=== PATIENT | female | born 1965 | race Caucasian/White ===

== ENCOUNTER 2017-04-17 22:10 | Emergency (ER) | payer OTHER, SELFPAY ==
[2017-04-17 22:19] VITALS: BP 127/71; PULSE 112; RESP 18; TEMP 37.7; O2SAT 94; BMI 27.4
--- NOTE | 2017-04-17 22:34 | HMH.EDGENADL ---
ED Disposition Clinical Impression: COPD exacerbation, Hypokalemia Acute bronchitis Qualifiers: Bronchitis organism: unspecified organism Qualified Code(s): J20.9 - Acute bronchitis, unspecified Diarrhea Qualifiers: Diarrhea type: unspecified type Qualified Code(s): R19.7 - Diarrhea, unspecified Disposition: Home, Self-Care Condition on Discharge: Good Additional Instructions: Continue your inhaler. Rest and plenty of fluids. Tylenol for fever. Additional instructions for SHORTNESS OF BREATH: See your physician as soon as possible for further evaluation. Return immediately if worsening shortness of breath or if vomiting, chest pain, fever, coughing of blood, or passing out. Prescriptions: Azithromycin [Zithromax 250mg tab] 250 mg PO DAILY #4 tab Potassium Chloride [K-Tab ER 20 mEq] 20 meq PO DAILY #7 tab predniSONE [Prednisone 10mg Tab Dose-Pack] 10 mg PO DAILY #42 tab Referrals: Juan M Sawyer MD [Primary Care Provider] - 3 days - Critical Care Critical Care Time: No Attestation: On 04/17/17, the high probability of a clinically significant, sudden or life threatening deterioration of the following system(s) required my full and direct attention, intervention and personal management. The time I documented below is in addition to time spent performing reported procedures but includes the following listed in this critical care notation. Medical Decision Making Vital Signs: 04/17/17 22:19 04/17/17 22:44 Temperature 99.9 F H Temperature Source Oral Pulse Rate 89 Pulse Rate [Right Radial] 112 H Respiratory Rate 18 Blood Pressure [Right Arm] 127/71 Blood Pressure Mean [Right Arm] 89 Blood Pressure Source [Right Arm] Automatic Cuff Blood Pressure Position [Right Arm] Supine 02 Sat by Pulse Oximetry 94 L Oxygen Delivery Method Room Air - Lab Data Lab Results 04/17/17 22:30: WBC 8.5, RBC 4.25, Hgb 13.3, Hct 39.0, MCV 91.9, MCH 31.3 H, MCHC 34.1, RDW 13.6, Plt Count 206, MPV 8.5, Neut % (Auto) 72.5, Lymph % (Auto) 20.6, [place] % (Auto) 6.2, Eos % (Auto) 0.2, Baso % (Auto) 0.4, Neut # (Auto) 6.2, Lymph # (Auto) 1.8, [place] # (Auto) 0.5, Eos # (Auto) 0.0, Baso # (Auto) 0.0 04/17/17 22:30: Sodium 135 L, Potassium 2.9 L*, Chloride 101, Carbon Dioxide 22, Anion Gap 14.9, BUN 13, Creatinine 1.12 H, Estimated Creat Clear 74, Estimated GFR 52 L, Est GFR ( Amer) 63, Glucose 135 H, Calcium 8.2 L, Total Bilirubin 0.5, AST 46 H, ALT 47, Alkaline Phosphatase 83, Total Protein 7.5, Albumin 3.5, Globulin 4.0 H, Albumin/Globulin Ratio 0.9 L, Amylase 48 04/17/17 22:30: Lactic Acid 1.3 04/17/17 22:30: Influenza Type A Ag Negative, Influenza Type B Ag Negative, Group A Strep Rapid Negative 04/17/17 22:30: Total Creatine Kinase 258 H, CK-MB (CK-2) < 0.5, CK-MB (CK-2) Rel Index 0.2, Troponin I < 0.02 Result diagrams: 04/17/17 22:30 04/17/17 22:30 Orders (Tests/Meds): ED MEDICATIONS Discontinued Medications Generic Name Dose Route Start Last Admin Trade Name Mandoq PRN Reason Stop Dose Admin Methylprednisolone Sodium Succinate 125 mg 04/17/17 23:02 04/17/17 23:11 Solu-Medrol 125mg/2ml Vial IV 04/17/17 23:03 125 mg ONCE ONE Administration Potassium Chloride 60 meq 04/17/17 23:00 04/17/17 23:11 Klor-Con 20meq Tablet PO 04/17/17 23:01 60 meq ONCE ONE Administration Sodium Chloride 1,000 ml 04/17/17 23:00 04/17/17 23:11 Sod Chlor 0.9% 1000ml Bag IV 04/17/17 23:01 1,000 ml BOLUS ONE Administration ORDERS Category Date Time Status Chest XR 2 view (NOT portable) [XR chest 2V] Stat Exams 04/17/17 22:36 Taken Diarrhea Panel, PCR Stat Lab 04/17/17 23:01 Ordered Urinalysis and Microscopic Stat Lab 04/17/17 22:29 Ordered Blood Culture Stat Micro 04/17/17 22:30 Received Strep Screen Confirmation Stat Micro 04/17/17 22:30 Received - Radiology Data #1 Image(s): Chest Image Reviewed: Yes I reviewed the patient's radiology results Prelimi
--- NOTE | 2017-04-17 22:36 | XR_ITS ---
XR chest 2V Ordering Physician: Thony Betancourt MD Patient Age: 51 years: Female HISTORY: ITS.REASON: cough, congestion . Smoker TECHNIQUE: PA and lateral chest COMPARISON :July & November 2006 CXR studies FINDINGS . Minor chronic changes reflecting history of smoking. A slight coarsening markings towards the right lower lobe is similar to previous studies dating back to 2006. A subtle minimal linear area projected over anterior third rib most likely reflects linear scarring and/or atelectasis but is slightly more evident today CXR. Perhaps Consider follow-up chest film in 2 - 3 months particularly if symptoms persist. & If prominent history of smoking consider.LDCT follow-up . Old lateral left fifth rib fracture noted. Left lung otherwise stable unremarkable. Scant apical pleural scarring. . Heart is normal in size mediastinal structures unremarkable. Calcified hilar nodes reflect over granulomatous disease. Small calcified granuloma just lateral to the right honey again noted and stable. IMPRESSION: ------- 1. Nothing definitely acute. Minor chronic changes . 2. Very Minor accentuation of minimal linear scarring & or atelectasis at the RUL project over the right third rib end. This is not felt to be of significance, but if prominent history of smoking may want to consider follow-up CXR or LD CT chest 3. Healing left rib fracture has become apparent since 2014
[2017-04-17 22:44] VITALS: PULSE 88; PULSE 89
[2017-04-17 22:53] LABS: Basophils % 0.4 % (0.1-2.0); Eosinophils % 0.2 % (0.1-12.0); Hemoglobin 13.3 g/dL (12.2-16.2); Lymphocytes # 1.8 K/mm3 (0.7-4.5); Lymphocytes % 20.6 K/mm3 (10-50); Mean Corpuscular HGB Conc 34.1 g/dL (31.8-35.4); Mean Corpuscular Hemoglobin 31.3 pg (27.0-31.2); Mean Corpuscular Volume 91.9 fl (81-99); Mean Platelet Volume 8.5 fl (7.4-10.4); Monocytes # 0.5 K/mm3 (0.1-1.0); Monocytes % 6.2 % (1.7-9.3); Neutrophils # 6.2 K/mm3 (1.8-7.8); Neutrophils % 72.5 % (37.0-80.0); Platelet Count 206 K/mm3 (142-424); Red Blood Count 4.25 M/mm3 (4.20-5.40); Red Cell Distribution Width 13.6 % (11.5-17.5); White Blood Count 8.5 K/mm3 (4.8-10.8)
[2017-04-17 22:59] LABS: Alanine Aminotransferase 47 U/L (12-78); Albumin Level 3.5 gm/dL (3.4-5.0); Albumin/Globulin Ratio 0.9 (1.1-1.8); Alkaline Phosphatase 83 U/L (46-116); Amylase 48 U/L (25-125); Anion Gap 14.9 mEq/L (5-15); Aspartate Amino Transferase 46 U/L (15-37); Bilirubin,Total 0.5 mg/dL (0.2-1.0); Blood Urea Nitrogen 13 mg/dL (7-18); Calcium 8.2 mg/dL (8.5-10.1); Carbon Dioxide 22 mmol/L (21.0-32.0); Chloride 101 mmol/L (98-107); Creatinine Clearance Estimated 74 mL/min (0-300); Creatinine,Serum 1.12 mg/dL (0.55-1.02); Estimated Glomerular Filt Rate 52 ml/min (>60); GFR (African American) 63 ML/MIN (>60); Glucose 135 mg/dL (74-106); Sodium 135 mmol/L (136-145); Total Protein,Serum 7.5 gm/dL (6.4-8.2)
[2017-04-17 23:00] LABS: Potassium 2.9 mmoL/L (3.5-5.1)
[2017-04-17 23:05] LABS: Lactic Acid 1.3 mmol/L (0.4-2.0)
[2017-04-17 23:06] LABS: Strep Scrn Group A (Rapid) Negative (Negative)
[2017-04-17 23:23] LABS: CKMB Relative Index 0.2 U/L (0-4.0); Creatine Kinase 258 U/L (26-192); Creatine Kinase MB < 0.5 mg/ml (0.0-3.6); Troponin I < 0.02 ng/ml (0.00-0.06)
[2017-04-18 00:14] VITALS: BP 138/82; PULSE 92; RESP 16; TEMP 37.1; O2SAT 96
== END 2017-04-18 00:17 | disposition home or self-care (01) ==
PROVIDERS: Emergency Provider Emergency Medicine; PCP Emergency Medicine
DX: J44.0 Chronic obstructive pulmonary disease with (acute) lower respiratory infection (principal); J44.1 Chronic obstructive pulmonary disease with (acute) exacerbation; E87.6 Hypokalemia; Z79.899 Other long term (current) drug therapy; Z91.040 Latex allergy status; Z88.6 Allergy status to analgesic agent; F17.210 Nicotine dependence, cigarettes, uncomplicated
CPT/HCPCS: 71046; 80053; 82150; 82550; 82553; 83605; 84484; 85025; 87040; 87275; 87276; 87430; 93005; 96365; 96374; 96375; 99284

== ENCOUNTER → 2017-09-09 10:23 | Outpatient (REF) | payer OTHER, SELFPAY ==
[2017-09-09 13:34] LABS: Basophils # 0.1 K/mm3 (0-0.2); Basophils % 0.8 % (0.1-2.0); Eosinophils # 0.2 K/mm3 (0.0-0.4); Eosinophils % 2.9 % (0.1-12.0); Hematocrit 48.1 % (37.0-47.0); Hemoglobin 14.6 g/dL (12.2-16.2); Lymphocytes # 2.2 K/mm3 (0.7-4.5); Lymphocytes % 27.7 K/mm3 (10-50); Mean Corpuscular HGB Conc 30.3 g/dL (31.8-35.4); Mean Corpuscular Hemoglobin 29.9 pg (27.0-31.2); Mean Corpuscular Volume 98.6 fl (81-99); Mean Platelet Volume 8.8 fl (7.4-10.4); Monocytes # 0.5 K/mm3 (0.1-1.0); Monocytes % 6.2 % (1.7-9.3); Neutrophils % 62.4 % (37.0-80.0); Platelet Count 300 K/mm3 (142-424); Red Blood Count 4.88 M/mm3 (4.20-5.40); Red Cell Distribution Width 13.5 % (11.5-17.5); White Blood Count 7.9 K/mm3 (4.8-10.8)
[2017-09-09 14:07] LABS: Alanine Aminotransferase 20 U/L (12-78); Albumin Level 3.8 gm/dL (3.4-5.0); Albumin/Globulin Ratio 1.1 (1.1-1.8); Alkaline Phosphatase 102 U/L (46-116); Anion Gap 13.5 mEq/L (5-15); Aspartate Amino Transferase 18 U/L (15-37); Bilirubin,Total 0.4 mg/dL (0.2-1.0); Blood Urea Nitrogen 14 mg/dL (7-18); Calcium 8.7 mg/dL (8.5-10.1); Carbon Dioxide 23 mmol/L (21.0-32.0); Chloride 112 mmol/L (98-107); Cholesterol 181 mg/dL (140-200); Estimated Glomerular Filt Rate 59 ml/min (>60); GFR (African American) 71 ML/MIN (>60); Globulin 3.5 gm/dl (1.3-3.2); Glucose 100 mg/dL (74-106); HDL Cholesterol 30 mg/dL (29-89); LDL Cholesterol 116 mg/dL (0-130); Potassium 4.5 mmoL/L (3.5-5.1); Sodium 144 mmol/L (136-145); T4 (Thyroxine) 5.8 ug/dl (4.7-13.3); Thyroid Stimulating Hormone 7.57 uIU/ml (0.358-3.740); Total Protein,Serum 7.3 gm/dL (6.4-8.2); Triglycerides 173 mg/dL (30-200); VLDL Cholesterol 35 mg/dL (0-40)
[2017-09-10 17:59] LABS: Vitamin D 25 Hydroxy 32.3 ng/mL (30.0-100.0)
== END ==
LOC: LAB 10:23
PROVIDERS: Visit Provider Physician Assistant
DX: R06.02 Shortness of breath (principal); R60.0 Localized edema
CPT/HCPCS: 80053; 80061; 82652; 84436; 84443; 85025

== ENCOUNTER → 2017-09-16 07:28 | Outpatient (CLI) | payer OTHER, SELFPAY ==
--- NOTE | 2017-09-16 07:31 | CA_ITS ---
PROCEDURE: 2-D M-mode and color Doppler study INDICATIONS FOR THE TEST: Chest pain X COPDX Heart Murmur Tobacco SmokingX Palpitations Fatigue Syncope EdemaX Hypertension Diabetes Mellitus Rheumatic Fever SOBXDOEXObesity Hyperlipidemia Family History HD Additional History TDS COPD PATIENT INFORMATION HEIGHT: 66 WEIGHT:197 GENDER: Female B/P:146/80 2-D/M-MODE INTERPRETATION: 2-D MEASUREMENTS OBSERVED VALUES IN CMS Right Ventricular Dimension (RVDd) 2.0 Interventricular Septum (Thickness)(IVsd) .8 Left Ventricular Internal Dimensions(LVIDd) 5.2 Left Ventricular Posterior Wall (Thickness)(LVPWd) .8 Aortic Root 3.0 Aortic Cusp Separation 1.9 Left Atrial Dimensions (LAD) 3.1 2D 1. Left atrium is normal size, left ventricle is normal size, there is no concentric left ventricular hypertrophy, visually estimated ejection fraction of 50% with no obvious regional wall motion abnormality. 2. The right atrium and right ventricle are relatively normal size and function. 3. The aortic, mitral and tricuspid valve are grossly normal. 4. The pulmonic valve is poorly visualized. 5. No significant pericardial effusion noted. DOPPLER INTERROGATION: Doppler interrogation of the aortic, mitral and tricuspid valvular presence of mild mitral and tricuspid regurgitation, tricuspid and jet velocity is insufficient for calculation of the right ventricular systolic pressure, diastolic parameters are within normal range. CONCLUSION: 1. Normal left ventricular size, visually estimated ejection fraction 50% with no obvious regional wall motion abnormality, diastolic parameters are within normal range. 2. Mild mitral and tricuspid regurgitation 3. No significant pericardial effusion noted.
== END ==
PROVIDERS: PCP Physician Assistant; Visit Provider Emergency Medicine
DX: R06.00 Dyspnea, unspecified (principal); R60.0 Localized edema
CPT/HCPCS: 93306

== ENCOUNTER → 2017-10-20 13:44 | Outpatient (REF) | payer OTHER, SELFPAY ==
[2017-10-20 18:15] LABS: Basophils # 0.1 K/mm3 (0-0.2); Basophils % 0.8 % (0.1-2.0); Eosinophils # 0.1 K/mm3 (0.0-0.4); Hematocrit 42.5 % (37.0-47.0); Hemoglobin 13.5 g/dL (12.2-16.2); Lymphocytes # 2.6 K/mm3 (0.7-4.5); Mean Corpuscular HGB Conc 31.8 g/dL (31.8-35.4); Mean Corpuscular Hemoglobin 31.1 pg (27.0-31.2); Mean Corpuscular Volume 97.9 fl (81-99); Mean Platelet Volume 8.5 fl (7.4-10.4); Monocytes # 0.6 K/mm3 (0.1-1.0); Monocytes % 7.7 % (1.7-9.3); Neutrophils # 3.9 K/mm3 (1.8-7.8); Neutrophils % 53.5 % (37.0-80.0); Platelet Count 344 K/mm3 (142-424); Red Blood Count 4.34 M/mm3 (4.20-5.40); Red Cell Distribution Width 13.8 % (11.5-17.5); White Blood Count 7.2 K/mm3 (4.8-10.8)
[2017-10-20 19:18] LABS: Alanine Aminotransferase 22 U/L (12-78); Albumin Level 3.5 gm/dL (3.4-5.0); Alkaline Phosphatase 101 U/L (46-116); Anion Gap 11.3 mEq/L (5-15); Aspartate Amino Transferase 13 U/L (15-37); Bilirubin,Total 0.4 mg/dL (0.2-1.0); Blood Urea Nitrogen 9 mg/dL (7-18); Calcium 8.7 mg/dL (8.5-10.1); Carbon Dioxide 26 mmol/L (21.0-32.0); Chloride 107 mmol/L (98-107); Chol/HDL Ratio 5.7 (1-3.5); Cholesterol 194 mg/dL (140-200); Creatinine,Serum 0.97 mg/dL (0.55-1.02); Estimated Glomerular Filt Rate 61 ml/min (>60); GFR (African American) 74 ML/MIN (>60); Globulin 3.6 gm/dl (1.3-3.2); Glucose 91 mg/dL (74-106); HDL Cholesterol 34 mg/dL (29-89); LDL Cholesterol 129 mg/dL (0-130); Potassium 4.3 mmoL/L (3.5-5.1); Sodium 140 mmol/L (136-145); T4 (Thyroxine) 7.4 ug/dl (4.7-13.3); Thyroid Stimulating Hormone 15.39 uIU/ml (0.358-3.740); Total Protein,Serum 7.1 gm/dL (6.4-8.2); Triglycerides 157 mg/dL (30-200); VLDL Cholesterol 31 mg/dL (0-40)
[2017-10-22 08:27] LABS: Vitamin D 25 Hydroxy 38.8 ng/mL (30.0-100.0)
== END ==
LOC: LAB 13:44
PROVIDERS: Visit Provider Physician Assistant
DX: E66.3 Overweight (principal); E87.6 Hypokalemia; J44.1 Chronic obstructive pulmonary disease with (acute) exacerbation
CPT/HCPCS: 80053; 80061; 82652; 84436; 84443; 85025

== ENCOUNTER → 2017-11-02 08:57 | Outpatient (CLI) | payer OTHER, SELFPAY ==
--- NOTE | 2017-11-02 09:02 | US_ITS ---
US abdomen complete HISTORY: ITS.REASON: edema, hepatomegaly? ORDERING PHYSICIAN: Juan M Sawyer MD PATIENT AGE: 52 COMPARISON: None FINDINGS: PANCREAS:Poorly demonstrated due to overlying bowel gas. Grossly unremarkable LIVER:No focal liver lesions demonstrated. Homogeneous echogenicity. No intrahepatic biliary ductal dilatation evident RIGHT KIDNEY:Unremarkable. Normal size and echogenicity. No hydronephrosis LEFT KIDNEY:Unremarkable. No hydronephrosis. Mild cortical thinning. GALLBLADDER:No gallstones, gallbladder wall thickening, pericholecystic fluid, or biliary dilatation. AORTA:No evidence of aneurysmal dilatation. SPLEEN:Unremarkable. Normal size and echogenicity ASCITES:None demonstrated. IMPRESSION: No acute finding.
== END ==
PROVIDERS: PCP Emergency Medicine; Visit Provider Emergency Medicine
DX: R06.00 Dyspnea, unspecified (principal); R60.9 Edema, unspecified
CPT/HCPCS: 76700

== ENCOUNTER → 2017-11-09 10:06 | Outpatient (REF) | payer OTHER, SELFPAY ==
[2017-11-09 14:42] LABS: Basophils # 0.1 K/mm3 (0-0.2); Basophils % 0.9 % (0.1-2.0); Eosinophils # 0.1 K/mm3 (0.0-0.4); Eosinophils % 1.6 % (0.1-12.0); Hematocrit 43.5 % (37.0-47.0); Hemoglobin 14.1 g/dL (12.2-16.2); Lymphocytes # 2.3 K/mm3 (0.7-4.5); Lymphocytes % 29.6 K/mm3 (10-50); Mean Corpuscular HGB Conc 32.3 g/dL (31.8-35.4); Mean Corpuscular Hemoglobin 31.5 pg (27.0-31.2); Mean Corpuscular Volume 97.4 fl (81-99); Mean Platelet Volume 8.8 fl (7.4-10.4); Monocytes # 0.6 K/mm3 (0.1-1.0); Monocytes % 7.5 % (1.7-9.3); Neutrophils # 4.7 K/mm3 (1.8-7.8); Neutrophils % 60.3 % (37.0-80.0); Platelet Count 300 K/mm3 (142-424); Red Blood Count 4.47 M/mm3 (4.20-5.40); Red Cell Distribution Width 13.2 % (11.5-17.5); White Blood Count 7.8 K/mm3 (4.8-10.8)
[2017-11-09 15:14] LABS: Alanine Aminotransferase 21 U/L (12-78); Albumin Level 3.4 gm/dL (3.4-5.0); Albumin/Globulin Ratio 0.9 (1.1-1.8); Alkaline Phosphatase 108 U/L (46-116); Anion Gap 11.8 mEq/L (5-15); Aspartate Amino Transferase 15 U/L (15-37); Bilirubin,Total 0.2 mg/dL (0.2-1.0); Blood Urea Nitrogen 13 mg/dL (7-18); Calcium 8.3 mg/dL (8.5-10.1); Carbon Dioxide 27 mmol/L (21.0-32.0); Chloride 108 mmol/L (98-107); Creatinine,Serum 1.11 mg/dL (0.55-1.02); Estimated Glomerular Filt Rate 52 ml/min (>60); GFR (African American) 63 ML/MIN (>60); Globulin 3.6 gm/dl (1.3-3.2); Glucose 87 mg/dL (74-106); Potassium 3.8 mmoL/L (3.5-5.1); Sodium 143 mmol/L (136-145); T4 (Thyroxine) 9.2 ug/dl (4.7-13.3); Thyroid Stimulating Hormone 0.17 uIU/ml (0.358-3.740)
[2017-11-10 08:26] LABS: Hep A Ab, IgM Negative (Negative); Hepatitis B Core Antibody IgM Negative (Negative); Hepatitis B Surface Antigen Negative (Negative)
[2017-11-10 12:45] LABS: HIV Screen 4th Generation wRfx Non Reactive (Non Reactive); HSV 2 IgG, Type Spec <0.91 index (0.00-0.90); Hepatitis C Antibody 0.2 s/co ratio (0.0-0.9); Rapid Plasma Reagin Ab Titer Non Reactive (NonRea<1:1)
== END ==
LOC: LAB 10:06
PROVIDERS: Visit Provider Physician Assistant
DX: Z20.5 Contact with and (suspected) exposure to viral hepatitis (principal); E03.9 Hypothyroidism, unspecified
CPT/HCPCS: 80053; 80074; 84436; 84443; 85025; 86592; 86695; 86703; 86790; G0432

== ENCOUNTER → 2017-12-14 09:52 | Outpatient (REF) | payer OTHER, SELFPAY ==
[2017-12-14 13:52] LABS: Amphetamine/Metha Screen,Urine Negative ng/mL (<1000); Barbiturates Screen,Urine Negative ng/mL (<200); Benzodiazepines Screen,Urine Negative ng/mL (<200); Cannabinoid Screen,Urine Positive ng/mL (<50); Cocaine Screen,Urine Negative ng/mL (<300); Methadone Screen,Urine Negative ng/mL (<300); Opiate Screen,Urine Negative ng/mL (<300); Phencyclidine Screen,Urine Negative ng/mL (<25)
[2017-12-21 09:20] LABS: Alprazolam Negative (Cutoff=100); Benzodiazepines Positive ng/mL (Cutoff=100); Clonazepam Positive (.); Flurazepam Negative (Cutoff=100); Lorazepam Negative (Cutoff=100); Midazolam Negative (Cutoff=100); Temazepam Negative (Cutoff=100); Triazolam Negative (Cutoff=100)
[2017-12-21 15:52] LABS: Clonazepam Confirm 280 ng/mL (Cutoff=100)
== END ==
LOC: LAB 09:52
PROVIDERS: Visit Provider Physician Assistant
DX: Z79.899 Other long term (current) drug therapy (principal)
CPT/HCPCS: 80305; 80346

== ENCOUNTER → 2018-02-01 13:46 | Outpatient (CLI) | payer OTHER, SELFPAY ==
--- NOTE | 2018-02-01 13:49 | XR_ITS ---
XR knee RT 3V HISTORY: ITS.REASON: Right knee pain ORDERING PHYSICIAN: KATYA Parsons PATIENT AGE: 52 years COMPARISON: None FINDINGS: No fracture or dislocation. No lytic or blastic change. Normal mineralization. No significant arthritic changes evident. No other significant findings IMPRESSION: Negative Knee
[2018-02-01 14:40] VITALS: PULSE 79; PULSE 82
== END ==
PROVIDERS: PCP Physician Assistant; Visit Provider Physician Assistant
DX: R06.00 Dyspnea, unspecified (principal); M25.561 Pain in right knee
CPT/HCPCS: 73562; 94060; 94640

== ENCOUNTER → 2018-02-02 09:24 | Outpatient (CLI) | payer OTHER, SELFPAY ==
--- NOTE | 2018-02-02 09:26 | CT_ITS ---
CT lung screening EXAM: CT LUNG LOW DOSE WO CONTRAST HISTORY: 60 pack-year smoking history asymptomatic for lung cancer ITS.REASON: Smoker ORDERING PHYSICIAN: KATYA Parsons PATIENT AGE: 52 years COMPARISON: None TECHNIQUE: The exam was performed on a GE Light Speed [address] scanner using 2.90 mGy CTDI. A low dose helical CT CHEST was performed on a multi-detector scanner. All CT scans at the facility use one or more dose reduction, viz: automated exposure control, ma/kV adjustment per patient size (including targeted exams where dose is matched to indication, i.e. head), or iterative reconstruction technique. The LDCT was performed in a facility that meets the criteria for the screening program. Data regarding this exam was submitted to ACR which is an approved registry. The order for this exam indicates that it came as a result of a lung cancer screening counseling shard decision-making visit that included all the elements required of such a visit including smoking cessation. The radiologist interpreting this exam meets the CMS criteria for the LDCT lung cancer screening program. The exam is reported using the Lung-RADS classification scale and reported to the ACR registry. NOTE: This study was performed for the specific purposes of lung cancer screening and is not an alternative to diagnostic chest CT. RADIATION DOSE: CTDI vol(CT dose Index-volume) = 2.90mG DLP (Dose Length Product) = 106.81 mGcm FINDINGS: There is hyperinflation with attenuation of the peripheral pulmonary vessels consistent with COPD with mild coarsening of the bronchovascular markings. Calcified granuloma is present in the central aspect of the right upper lobe. Calcified nodes are present in the hilum and mediastinum IMPRESSION: 1. Lung RADS Category: 2, benign 2. Other findings: COPD RECOMMENDATIONS: 12 month LDCT follow-up
--- NOTE | 2018-02-02 09:26 | MM_ITS ---
MM Dig screening mamm BI w/CAD CAD Screening COMPARISON: Digital mammograms with CAD 01/23/2014 and analog mammograms September 2007 INDICATION: There is no personal or family history of breast cancer TECHNIQUE: Standard CC and MLO images were obtained. R2 CAD reviewed. FINDINGS: Scattered fibroglandular densities are seen in both breast and the findings are bilateral and symmetrical. There are couple benign-appearing calcifications right breast. There is no suspicious lesion and there are no suspicious microcalcifications. There are small nodes in both axilla as noted previously. IMPRESSION: Fibrofatty parenchyma no suspicious lesion seen BI-RADS Category: 2 Benign Finding(s) RECOMMENDED FOLLOW-UP: 1YR - 1 YEAR FOLLOW-UP (A letter has been sent to the patient regarding results of the study.)
== END ==
PROVIDERS: PCP Physician Assistant; Visit Provider Physician Assistant
DX: Z12.31 Encounter for screening mammogram for malignant neoplasm of breast (principal); Z12.2 Encounter for screening for malignant neoplasm of respiratory organs; Z87.891 Personal history of nicotine dependence
CPT/HCPCS: 77067

== ENCOUNTER → 2018-05-06 13:27 | Outpatient (CLI) | payer OTHER, SELFPAY ==
[2018-05-06 13:32] LABS: Microscopic, Urine URINE MICROSCOPIC (MICROSCOPIC)
[2018-05-06 14:39] LABS: Appearance,Urine SL CLOUDY (Clear); Bilirubin,Urine Negative (Negative); Blood, Urine 2+ (Negative); Color,Urine YELLOW (Yellow); Glucose,Urine (UA) Negative (Negative); Ketones,Urine Negative (Negative); Leukocyte Esterase,Urine Negative (Negative); Nitrate,Urine Negative (Negative); Protein,Urine Negative (Negative); Specific Gravity, Urine 1.025 (1.005-1.030); Urobilinogen,Urine 0.2 EU/dl (0.2)
[2018-05-06 14:50] LABS: Amphetamine/Metha Screen,Urine Positive ng/mL (<1000); Barbiturates Screen,Urine Negative ng/mL (<200); Benzodiazepines Screen,Urine Negative ng/mL (<200); Cannabinoid Screen,Urine Positive ng/mL (<50); Cocaine Screen,Urine Negative ng/mL (<300); Methadone Screen,Urine Negative ng/mL (<300); Opiate Screen,Urine Negative ng/mL (<300); Phencyclidine Screen,Urine Negative ng/mL (<25)
[2018-05-06 16:08] LABS: Bacteria,Urine 1+ /lpf
== END ==
PROVIDERS: Visit Provider Nurse Practitioner Family
DX: Z79.899 Other long term (current) drug therapy (principal); R35.0 Frequency of micturition
CPT/HCPCS: 80305; 81001; 87086

== ENCOUNTER → 2018-06-22 14:26 | Outpatient (CLI) | payer OTHER, SELFPAY ==
[2018-06-22 15:26] LABS: Amphetamine/Metha Screen,Urine Negative ng/mL (<1000); Barbiturates Screen,Urine Negative ng/mL (<200); Benzodiazepines Screen,Urine Negative ng/mL (<200); Cannabinoid Screen,Urine Positive ng/mL (<50); Cocaine Screen,Urine Negative ng/mL (<300); Methadone Screen,Urine Negative ng/mL (<300); Opiate Screen,Urine Negative ng/mL (<300); Phencyclidine Screen,Urine Negative ng/mL (<25)
== END ==
PROVIDERS: Visit Provider Physician Assistant
DX: Z79.899 Other long term (current) drug therapy (principal)
CPT/HCPCS: 80305

== ENCOUNTER → 2018-08-02 14:55 | Outpatient (CLI) | payer OTHER, SELFPAY ==
[2018-08-10 08:20] LABS: Alprazolam Negative (Cutoff=100); Benzodiazepines Negative ng/mL (Cutoff=100); Clonazepam Negative (Cutoff=100); Flurazepam Negative (Cutoff=100); Lorazepam Negative (Cutoff=100); Midazolam Negative (Cutoff=100); Temazepam Negative (Cutoff=100); Triazolam Negative (Cutoff=100)
== END ==
PROVIDERS: Visit Provider Physician Assistant
DX: Z79.899 Other long term (current) drug therapy (principal)
CPT/HCPCS: 80346

== ENCOUNTER → 2018-10-04 14:08 | Outpatient (CLI) | payer OTHER, SELFPAY ==
[2018-10-04 16:53] LABS: Amphetamine/Metha Screen,Urine Negative ng/mL (<1000); Barbiturates Screen,Urine Negative ng/mL (<200); Benzodiazepines Screen,Urine Negative ng/mL (<200); Cannabinoid Screen,Urine Positive ng/mL (<50); Cocaine Screen,Urine Negative ng/mL (<300); Methadone Screen,Urine Negative ng/mL (<300); Opiate Screen,Urine Negative ng/mL (<300); Phencyclidine Screen,Urine Negative ng/mL (<25)
== END ==
PROVIDERS: Visit Provider Physician Assistant
DX: Z79.899 Other long term (current) drug therapy (principal)
CPT/HCPCS: 80305

== ENCOUNTER → 2019-04-05 08:56 | Outpatient (CLI) | payer OTHER, SELFPAY | PROVIDERS: Visit Provider Physician Assistant | DX: N89.8 Other specified noninflammatory disorders of vagina (principal) | CPT/HCPCS: 87210; 87252; 87491; 87591 ==

== ENCOUNTER → 2019-04-05 15:08 | Outpatient (CLI) | payer OTHER, SELFPAY ==
[2019-04-08 15:29] LABS: Neisseria gonorrhoeae, NAA Negative (Negative)
== END ==
PROVIDERS: Visit Provider Physician Assistant
DX: N89.8 Other specified noninflammatory disorders of vagina (principal)
CPT/HCPCS: 87252; 87491; 87591

== ENCOUNTER 2020-05-11 00:10 | Emergency (ER) | payer OTHER, SELFPAY ==
[2020-05-11] VITALS (9 sets, daily range): BP systolic 92–100; BP diastolic 50–69; PULSE 55–75; RESP 12–18; TEMP 36.6–36.8; O2SAT 96–98; BMI 26.9
--- NOTE | 2020-05-11 00:25 | XR_ITS ---
PROCEDURE: XR CHEST PORTABLE CLINICAL HISTORY: seizure COMPARISON: CR CXR CHEST(2 VIEWS-NOT PORTABLE) from 01/18/2014 CR CXR CHEST(2 VIEWS-NOT PORTABLE) from 08/03/2014 CR CXR2V XR chest 2V from 04/17/2017 FINDINGS: The cardiomediastinal silhouette and pulmonary vascularity are within normal limits. The lungs are clear without infiltrates, suspicious nodules, or pleural effusions. No acute bony abnormalities. IMPRESSION: No acute findings. Dictated by: Luis Pasron MD 05/11/2020 05:34 Luis Parson MD in [place] 05/11/2020 05:34
--- NOTE | 2020-05-11 00:25 | CT_ITS ---
PROCEDURE: CT HEAD/BRAIN WO CON CLINICAL INDICATION: seizure COMPARISON: MR BRW/O MRI-BRAIN W/O from 10/16/2014 TECHNIQUE: Axial images obtained. All CT scans at the facility use one or more dose reduction, viz: automated exposure control, ma/kV adjustment per patient size (including targeted exams where dose is matched to indication, i.e. head), or iterative reconstruction technique. FINDINGS: No midline shift, mass effect, intracranial hemorrhage, hydrocephalus, or extra-axial fluid collection is evident. The calvarium has an unremarkable appearance. Fluid is present in the left mastoid sinus mucosal thickening involves the sphenoid sinus in there is a retention cyst in the left maxillary sinus posteriorly. IMPRESSION: 1. No acute intracranial finding. 2. Sinus disease Dictated by: Luis Parson MD 05/11/2020 06:59 Luis Parson MD in [place] 05/11/2020 06:59
[2020-05-11 00:28] LABS: POC Glucose,Bedside 123 (70-110)
[2020-05-11 00:31] LABS: Microscopic, Urine URINE MICROSCOPIC (MICROSCOPIC)
[2020-05-11 00:35] LABS: Basophils # 0.1 K/mm3 (0-0.2); Basophils % 0.9 % (0.1-2.0); Eosinophils # 0.2 K/mm3 (0.0-0.4); Eosinophils % 1.5 % (0.1-12.0); Hematocrit 44.9 % (37.0-47.0); Hemoglobin 14.6 g/dL (12.2-16.2); Lymphocytes # 6.4 K/mm3 (0.7-4.5); Lymphocytes % 41.4 % (10-50); Mean Corpuscular HGB Conc 32.5 g/dL (31.8-35.4); Mean Corpuscular Hemoglobin 31.5 pg (27.0-31.2); Mean Corpuscular Volume 96.9 fl (81-99); Mean Platelet Volume 8.1 fl (7.4-10.4); Monocytes # 0.9 K/mm3 (0.1-1.0); Monocytes % 5.8 % (1.7-9.3); Neutrophils # 7.8 K/mm3 (1.8-7.8); Neutrophils % 50.4 % (37.0-80.0); Platelet Count 394 K/mm3 (142-424); Red Blood Count 4.63 M/mm3 (4.20-5.40); Red Cell Distribution Width 13.8 % (11.5-17.5); White Blood Count 15.4 K/mm3 (4.8-10.8)
[2020-05-11 00:38] LABS: MANUAL DIFFERENTIAL MANUAL DIFFERENTIAL (MANUAL DIFF)
[2020-05-11 00:41] LABS: Appearance,Urine CLEAR (Clear); Bilirubin,Urine Negative (Negative); Blood, Urine TRACE-I (Negative); Color,Urine YELLOW (Yellow); Glucose,Urine (UA) Negative (Negative); Ketones,Urine Negative (Negative); Leukocyte Esterase,Urine Negative (Negative); Nitrate,Urine Negative (Negative); PH,Urine 5.5 (5.0-8.5); Protein,Urine Negative (Negative); Specific Gravity, Urine 1.025 (1.005-1.030); Urobilinogen,Urine 0.2 EU/dl (0.2)
[2020-05-11 00:44] LABS: Alanine Aminotransferase 13 U/L (12-78); Albumin Level 4.4 g/dl (3.5-5.0); Alkaline Phosphatase 99 U/L (38-126); Aspartate Amino Transferase 24 U/L (14-36); Bilirubin,Direct 0.1 mg/dl (0.0-0.4); Bilirubin,Indirect 0.2 mg/dL (0.0-0.9); Bilirubin,Total 0.3 mg/dl (0.2-1.3); Bilirubin,Unconjugated 0.3 mg/dL (0.0-1.1); Total Protein,Serum 7.9 g/dl (6.3-8.2)
--- NOTE | 2020-05-11 00:44 | HMH.EDSEIZ ---
ED Disposition Clinical Impression: Epileptic seizure Qualifiers: Epilepsy type: unspecified Intractability: intractable Status epilepticus: without status epilepticus Qualified Code(s): G40.919 - Epilepsy, unspecified, intractable, without status epilepticus Hypothyroidism Qualifiers: Hypothyroidism type: acquired Qualified Code(s): E03.9 - Hypothyroidism, unspecified Disposition: Home, Self-Care Condition on Discharge: Good Instructions: DI for Seizure Disorder -- Adult Additional Instructions: call pcp and neurologist wednesday Referrals: Tash Subramanian PA [Primary Care Provider] - - Critical Care Critical Care Time: No Attestation: On 05/11/20, the high probability of a clinically significant, sudden or life threatening deterioration of the following system(s) required my full and direct attention, intervention and personal management. The time I documented below is in addition to time spent performing reported procedures but includes the following listed in this critical care notation. Medical Decision Making - Medical Records Medical records reviewed: Yes: I reviewed the patient's medical records. - Bryson Inquiry Pt receiving controlled substance: No Vital Signs: 05/11/20 00:17 05/11/20 00:30 05/11/20 01:00 Temperature 97.8 F Temperature Source Rectal Pulse Rate [Right Brachial] 63 61 60 Respiratory Rate 18 12 12 Blood Pressure [Right Arm] 95/59 L 94/59 L 97/65 L Blood Pressure Mean [Right Arm] 71 70 75 Blood Pressure Source [Right Arm] Automatic Cuff Automatic Cuff Automatic Cuff Blood Pressure Position [Right Arm] Sitting Sitting Sitting 02 Sat by Pulse Oximetry 98 96 98 Oxygen Delivery Method Room Air Room Air Room Air 05/11/20 01:30 05/11/20 02:00 05/11/20 02:30 Temperature Temperature Source Pulse Rate [Right Brachial] 75 56 L 55 L Respiratory Rate 14 12 12 Blood Pressure [Right Arm] 95/69 L 93/62 L 92/58 L Blood Pressure Mean [Right Arm] 77 72 69 Blood Pressure Source [Right Arm] Automatic Cuff Automatic Cuff Automatic Cuff Blood Pressure Position [Right Arm] Sitting Sitting Sitting 02 Sat by Pulse Oximetry 98 98 98 Oxygen Delivery Method Room Air - Lab Data Lab results reviewed: Yes: I reviewed the patient's lab results. Lab Results 05/11/20 00:15: Urine Color Yellow, Urine Appearance Clear, Urine pH 5.5, Ur Specific [place] 1.025, Urine Protein Negative, Urine Glucose (UA) Negative, Urine Ketones Negative, Urine Blood Trace-i, Urine Nitrate Negative, Urine Bilirubin Negative, Urine Urobilinogen 0.2, Ur Leukocyte Esterase Negative, Urine RBC 3-5, Ur Squamous Epith Cells 10-20 05/11/20 00:15: WBC 15.4 H, RBC 4.63, Hgb 14.6, Hct 44.9, MCV 96.9, MCH 31.5 H, MCHC 32.5, RDW 13.8, Plt Count 394, MPV 8.1, Neut % (Auto) 50.4, Lymph % (Auto) 41.4, [place] % (Auto) 5.8, Eos % (Auto) 1.5, Baso % (Auto) 0.9, Neut # (Auto) 7.8, Lymph # (Auto) 6.4 H, [place] # (Auto) 0.9, Eos # (Auto) 0.2, Baso # (Auto) 0.1, Total Counted 100, Neutrophils % (Manual) 54, Band Neutrophils % 1.0, Lymphocytes % (Manual) 42, Monocytes % (Manual) 2, Eosinophils % (Manual) 1, Platelet Estimate Normal, RBC Morphology Normal 05/11/20 00:15: Sodium 142, Potassium 3.8, Chloride 109 H, Carbon Dioxide 24, Anion Gap 12.8, BUN 9, Creatinine 1.30 H, Estimated Creat Clear 55, Estimated GFR 43 L, Est GFR ( Amer) 52 L, Glucose 133 H, Calcium 9.0, Procalcitonin 0.050 05/11/20 00:15: Urine Opiates Screen Negative, Urine Methadone Screen Negative, Ur Barbituates Screen Negative, Ur Phencyclidine Scrn Negative, Ur Amphetamines Screen Positive H, U Benzodiazepines Scrn Negative, Urine Cocaine Screen Negative, U Marijuana (THC) Screen Positive H 05/11/20 00:15: Total Bilirubin 0.3, Direct Bilirubin 0.1, Conjugated Bilirubin 0.0, Indirect Bilirubin 0.2, Unconjugated Bilirubin 0.3, AST 24, ALT 13, Alkaline Phosphatase 99, C-Reactive Protein 2.7, Total Protein 7.9, Albumin 4.4 05/11/20 00:15: ESR 18 05/11/20 00:15: Plasma/Serum Alcohol
[2020-05-11 00:45] LABS: Anion Gap 12.8 mEq/L (5-15); Blood Urea Nitrogen 9 mg/dl (7-17); Carbon Dioxide 24 mmol/L (22.0-30.0); Chloride 109 mmol/L (98-107); Creatinine Clearance Estimated 55 mL/min (50-200); Estimated Glomerular Filt Rate 43 ml/min (>60); GFR (African American) 52 ML/MIN (>60); Glucose 133 mg/dl (74-100); Potassium 3.8 mmoL/L (3.5-5.1); Sodium 142 mmol/L (136-145)
[2020-05-11 00:50] LABS: C-Reactive Protein 2.7 mg/L (0-4)
[2020-05-11 00:53] LABS: Amphetamine/Metha Screen,Urine Positive ng/ml (<1000)
[2020-05-11 00:54] LABS: Barbiturates Screen,Urine Negative ng/ml (<200)
[2020-05-11 00:55] LABS: Benzodiazepines Screen,Urine Negative ng/ml (<200); Cannabinoid Screen,Urine Positive ng/ml (<50)
[2020-05-11 00:56] LABS: Cocaine Screen,Urine Negative ng/ml (<300)
[2020-05-11 00:57] LABS: Methadone Screen,Urine Negative ng/ml (<300); Opiate Screen,Urine Negative ng/ml (<300)
[2020-05-11 00:58] LABS: Phencyclidine Screen,Urine Negative ng/ml (<25)
[2020-05-11 01:01] LABS: Ethyl Alcohol < 10 mg/dl (0-10)
[2020-05-11 01:02] LABS: Erythrocyte Sedimentation Rate 18 mm/hr (0-30)
[2020-05-11 01:05] LABS: Eosinophils % 1 % (0-3); Lymphocytes % 42 % (10-50); Monocytes % 2 % (2-9); Neutrophils % 54 % (42-76); Total Cells Counted 100
[2020-05-11 01:06] LABS: Platelet Estimate Normal; RBC Morphology Normal
[2020-05-11 02:04] LABS: T4 (Thyroxine) 9.9 ug/dl (5.53-11.0)
[2020-05-12 10:31] LABS: Thyroid Peroxidase Antibodies 12 IU/mL (0-34)
[2020-05-14 18:49] LABS: Thyroid Stimulating Immunoglob <0.10 IU/L (0.00-0.55)
[2020-05-17 12:59] LABS: Levetiracetam (Keppra) 38.9 ug/mL (10.0-40.0)
== END 2020-05-11 03:45 | disposition home or self-care (01) ==
PROVIDERS: Emergency Provider Emergency Medicine; PCP Physician Assistant
DX: G40.919 Epilepsy, unspecified, intractable, without status epilepticus (principal); E03.9 Hypothyroidism, unspecified; F41.8 Other specified anxiety disorders; K21.9 Gastro-esophageal reflux disease without esophagitis; Z91.048 Other nonmedicinal substance allergy status; F17.210 Nicotine dependence, cigarettes, uncomplicated; Z79.899 Other long term (current) drug therapy
CPT/HCPCS: 70450; 71045; 80048; 80076; 80177; 80305; 81001; 82962; 84145; 84436; 84443; 84445; 85007; 85025; 85651; 86140; 86376; 96365; 96366; 99284; J2405

== ENCOUNTER → 2020-08-14 08:55 | Outpatient (CLI) | payer OTHER, SELFPAY ==
--- NOTE | 2020-08-14 08:55 | MM_ITS ---
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 R2 CAD reviewed. FINDINGS: There are scattered fibroglandular elements which may obscure a lesion on mammography. No new dominant mass or indirect evidence of malignancy. No suspicious type microcalcifications. IMPRESSION: Normal bilateral digital screening mammograms. BI-RAD Category: 1 Negative FOLLOW-UP: 1 YR 1 Year Follow-up (A letter has been sent to the patient regarding results of the study.) Dictated by: Zeke Hannah MD 08/15/2020 11:12 Zeke Hannah MD in [place] 08/15/2020 11:12
== END ==
PROVIDERS: PCP Physician Assistant; Visit Provider Physician Assistant
DX: Z12.31 Encounter for screening mammogram for malignant neoplasm of breast (principal)
CPT/HCPCS: 77063; 77067

== ENCOUNTER → 2020-09-03 07:54 | Outpatient (CLI) | payer OTHER, SELFPAY | PROVIDERS: PCP Physician Assistant; Visit Provider Physician Assistant | DX: J44.9 Chronic obstructive pulmonary disease, unspecified (principal) | CPT/HCPCS: 94060; 94726; 94729 ==

== ENCOUNTER → 2021-07-25 15:30 | Outpatient (CLI) | payer OTHER, SELFPAY ==
--- NOTE | 2021-07-25 15:34 | XR_ITS ---
FINAL REPORT CLINICAL HISTORY: pain for years COMPARISON: February 01, 2018 FINDINGS: AP, lateral and oblique views of the right knee were obtained. There is no acute osseous abnormality of the right knee. The joint space is preserved. The soft tissues are normal. There is no joint effusion. IMPRESSION: No acute osseous abnormality of the right knee. Reviewed, Interpreted and Dictated by Padmini Douglas MD Transcribed by Kaelyn Ragland Authenticated by Padmini Douglas MD on 07/25/2021 04:57:06 PM [facility]
== END ==
PROVIDERS: PCP Family Medicine; Visit Provider Physician Assistant
DX: M25.561 Pain in right knee (principal)
CPT/HCPCS: 73562

== ENCOUNTER → 2022-01-29 12:56 | Outpatient (CLI) | payer OTHER, SELFPAY ==
[2022-01-29 17:49] LABS: Alanine Aminotransferase 32 U/L (12-78); Albumin Level 4.1 g/dl (3.5-5.0); Albumin/Globulin Ratio 1.5 (1.1-1.8); Alkaline Phosphatase 122 U/L (38-126); Anion Gap 8.5 mEq/L (5-15); Aspartate Amino Transferase 35 U/L (14-36); Bilirubin,Total 0.2 mg/dl (0.2-1.3); Blood Urea Nitrogen 21 mg/dl (7-17); Carbon Dioxide 25 mmol/L (22.0-30.0); Chloride 113 mmol/L (98-107); Estimated Glomerular Filt Rate 34 ml/min (>60); GFR (African American) 41 ML/MIN (>60); Globulin 2.7 g/dL (1.3-3.2); Glucose 87 mg/dl (74-100); Potassium 4.5 mmoL/L (3.5-5.1); Sodium 142 mmol/L (136-145); Total Protein,Serum 6.8 g/dl (6.3-8.2)
[2022-01-29 17:58] LABS: C-Reactive Protein 0.6 mg/L (0-4)
[2022-01-29 18:06] LABS: 25-OH Vitamin D, Total 32.8 ng/mL (30-100)
[2022-01-29 18:29] LABS: Erythrocyte Sedimentation Rate 16 mm/hr (0-30)
[2022-01-29 18:38] LABS: Basophils # 0.1 K/mm3 (0-0.2); Basophils % 1.1 % (0.1-2.0); Eosinophils # 0.2 K/mm3 (0.0-0.4); Eosinophils % 3.5 % (0.1-12.0); Hematocrit 41.9 % (37.0-47.0); Hemoglobin 13.2 g/dL (12.2-16.2); Lymphocytes # 2.7 K/mm3 (0.7-4.5); Lymphocytes % 39.8 % (10-50); Mean Corpuscular HGB Conc 31.5 g/dL (31.8-35.4); Mean Corpuscular Volume 101.5 fl (81-99); Mean Platelet Volume 8.8 fl (7.4-10.4); Monocytes # 0.4 K/mm3 (0.1-1.0); Monocytes % 5.8 % (1.7-9.3); Neutrophils # 3.4 K/mm3 (1.8-7.8); Neutrophils % 49.8 % (37.0-80.0); Platelet Count 338 K/mm3 (142-424); Red Blood Count 4.13 M/mm3 (4.20-5.40); Red Cell Distribution Width 13.1 % (11.5-17.5); Vitamin B12 316 pg/mL (239-931); White Blood Count 6.8 K/mm3 (4.8-10.8)
[2022-01-29 22:55] LABS: Iron 98 ug/dL (37-170)
[2022-01-29 23:08] LABS: Total Iron Binding Capacity 245 ug/dL (265-497)
[2022-01-31 12:20] LABS: RA Latex Turbid. <10.0 IU/mL (<14.0)
[2022-02-02 06:08] LABS: Anti-Cyclic Citrullinated Pept 1 units (0-19)
[2022-02-02 17:32] LABS: Anti-Centromere B Antibodies <0.2 AI (0.0-0.9); Anti-DNA (DS) Ab Qn 1 IU/mL (0-9); Anti-Jo-1 <0.2 AI (0.0-0.9); Anti-Smith Antibody <0.2 AI (0.0-0.9); Antichromatin Antibodies <0.2 AI (0.0-0.9); Antiscleroderma-70 Antibodies 0.3 AI (0.0-0.9); RNP Antibodies <0.2 AI (0.0-0.9); Sjogren's Anti-SS-A <0.2 AI (0.0-0.9); Sjogren's Anti-SS-B <0.2 AI (0.0-0.9)
== END ==
PROVIDERS: PCP Physician Assistant; Visit Provider Physician Assistant
DX: R20.9 Unspecified disturbances of skin sensation (principal)
CPT/HCPCS: 80053; 82306; 82607; 83540; 83550; 85025; 85651; 86140; 86200; 86225; 86235; 86431

== ENCOUNTER → 2022-02-25 10:00 | Outpatient (CLI) | payer OTHER, SELFPAY | PROVIDERS: PCP Physician Assistant; Visit Provider Physician Assistant | DX: R39.89 Other symptoms and signs involving the genitourinary system (principal) | CPT/HCPCS: 87086 ==

== ENCOUNTER → 2022-02-27 11:07 | Outpatient (CLI) | payer OTHER, SELFPAY ==
--- NOTE | 2022-02-27 11:20 | XR_ITS ---
FINAL REPORT CLINICAL HISTORY: left shoulder pain FINDINGS: LEFT SHOULDER 3 views of the left shoulder were obtained. There is no acute fracture or dislocation. There is mild degenerative change of the acromioclavicular joint. There is no soft tissue abnormality. IMPRESSION: Mild degenerative change of the acromioclavicular joint. No acute bony abnormality. Reviewed, Interpreted and Dictated by Douglas Bustos III, MD Transcribed by Kaelyn Ragland Authenticated and [facility]
[2022-02-27 12:59] LABS: Chloride 109 mmol/L (98-107); Sodium 141 mmol/L (136-145)
[2022-02-27 13:00] LABS: Potassium 4.4 mmoL/L (3.5-5.1)
[2022-02-27 13:02] LABS: Anion Gap 12.4 mEq/L (5-15); Blood Urea Nitrogen 15 mg/dl (7-17); Carbon Dioxide 24 mmol/L (22.0-30.0); Cholesterol 211 mg/dl (140-200); Estimated Glomerular Filt Rate 43 ml/min (>60); GFR (African American) 52 ML/MIN (>60); Iron 125 ug/dL (37-170); Triglycerides 106 mg/dl (30-150); VLDL Cholesterol 21 mg/dL (0-40)
[2022-02-27 13:03] LABS: Calcium 8.7 mg/dl (8.4-10.2); Chol/HDL Ratio 3.2 (1-3.5); Glucose 85 mg/dl (74-100); HDL Cholesterol 66 mg/dl (40-60)
[2022-02-27 13:08] LABS: Total Iron Binding Capacity 257 ug/dL (265-497)
[2022-02-27 13:20] LABS: Direct LDL Cholesterol 95.15 mg/dL (100-129)
[2022-02-27 13:32] LABS: Thyroid Stimulating Hormone < 0.02 uIU/mL (0.465-4.68)
== END ==
PROVIDERS: PCP Physician Assistant; Visit Provider Physician Assistant
DX: M25.512 Pain in left shoulder (principal); N18.32 Chronic kidney disease, stage 3b; R20.9 Unspecified disturbances of skin sensation; E61.1 Iron deficiency
CPT/HCPCS: 36415; 73030; 80048; 80061; 83540; 83550; 84443

== ENCOUNTER → 2022-07-01 13:53 | Outpatient (POV) | payer OTHER, SELFPAY | PROVIDERS: Visit Provider Specialist/Technologist | DX: Z00.00 Encounter for general adult medical examination without abnormal findings (principal) ==

== ENCOUNTER → 2022-08-12 13:15 | Outpatient (POV) | payer OTHER, SELFPAY | PROVIDERS: Visit Provider Specialist/Technologist | DX: Z00.00 Encounter for general adult medical examination without abnormal findings (principal) ==

== ENCOUNTER 2023-02-06 22:36 | Emergency (ER) | payer OTHER, SELFPAY ==
[2023-02-06 22:36] VITALS: BP 141/90; PULSE 77; RESP 14; TEMP 36.5; O2SAT 100; BMI 25.7
--- NOTE | 2023-02-06 22:37 | HMH.EDGENADL ---
Discharge Plan Disposition Patient Disposition: Home, Self-Care Prescriptions Prescriptions: New naloxone [Narcan] 4 mg/actuation spray,non-aerosol 4 mg intranasal Q2M PRN (Reason: opioid overdose) Qty: 2 0RF Rx Instructions: spray 1 dose into ONE nostril; alternate nostrils w each dose until help arrives No Action metoprolol succinate 50 mg tablet extended release 24 hr See Rx Instructions .ROUTE .COMPLEX Qty: 90 3RF Dose Instruction: TAKE ONE TABLET BY MOUTH ONCE A DAY Rx Instructions: TAKE ONE TABLET BY MOUTH ONCE A DAY topiramate 200 mg tablet 200 mg PO BID Qty: 180 0RF baclofen 20 mg tablet 20 mg PO DAILY levetiracetam 750 mg tablet 750 mg PO ropinirole 1 mg tablet 1 mg PO gabapentin 800 mg tablet 800 mg PO levocetirizine 5 mg tablet See Rx Instructions .ROUTE .COMPLEX Qty: 30 10RF Dose Instruction: TAKE 1 TABLET BY MOUTH DAILY Rx Instructions: TAKE 1 TABLET BY MOUTH DAILY ferrous sulfate [FeroSul] 325 mg (65 mg iron) tablet See Rx Instructions .ROUTE .COMPLEX Qty: 30 10RF Dose Instruction: TAKE 1 TABLET BY MOUTH DAILY Rx Instructions: TAKE 1 TABLET BY MOUTH DAILY cyanocobalamin (vitamin B-12) [Vitamin B-12] 5,000 mcg tablet, sublingual See Rx Instructions .ROUTE .COMPLEX Qty: 30 10RF Dose Instruction: DISSOLVE 1 TABLET UNDER THE TONGUE DAILY Rx Instructions: DISSOLVE 1 TABLET UNDER THE TONGUE DAILY Anoro Ellipta 62.5-25 mcg/actuation blister with device 1 inh inhalation DAILY Qty: 60 3RF albuterol sulfate [Ventolin HFA] 90 mcg/actuation HFA aerosol inhaler See Rx Instructions .ROUTE .COMPLEX Qty: 18 0RF Dose Instruction: INHALE 2 PUFFS BY MOUTH EVERY 6 HOURS Rx Instructions: INHALE 2 PUFFS BY MOUTH EVERY 6 HOURS meloxicam 15 mg tablet See Rx Instructions .ROUTE .COMPLEX Qty: 30 0RF Dose Instruction: TAKE ONE TABLET BY MOUTH ONCE A DAY Rx Instructions: TAKE ONE TABLET BY MOUTH ONCE A DAY ipratropium-albuterol 0.5 mg-3 mg(2.5 mg base)/3 mL solution for nebulization See Rx Instructions .ROUTE .COMPLEX Qty: 180 10RF Dose Instruction: INHALE CONTENTS OF 1 VIAL VIA NEBULIZER FOUR TIMES A DAY NEEDED FOR SHORTNESS OF BREATH OR WHEEZING Rx Instructions: INHALE CONTENTS OF 1 VIAL VIA NEBULIZER FOUR TIMES A DAY NEEDED FOR SHORTNESS OF BREATH OR WHEEZING Farxiga 5 mg tablet See Rx Instructions .ROUTE .COMPLEX Qty: 30 3RF Dose Instruction: TAKE ONE TABLET BY MOUTH ONCE A DAY Rx Instructions: TAKE ONE TABLET BY MOUTH ONCE A DAY levothyroxine 150 mcg tablet See Rx Instructions .ROUTE .COMPLEX Qty: 30 3RF Dose Instruction: TAKE ONE TABLET BY MOUTH ONCE A DAY Rx Instructions: TAKE ONE TABLET BY MOUTH ONCE A DAY famotidine 40 mg tablet See Rx Instructions .ROUTE .COMPLEX Qty: 30 3RF Dose Instruction: TAKE 1 TABLET BY MOUTH EVERY DAY Rx Instructions: TAKE 1 TABLET BY MOUTH EVERY DAY Vraylar 4.5 mg capsule 4.5 mg PO DAILY Qty: 30 1RF paroxetine HCl [Paxil] 20 mg tablet 20 mg PO DAILY Qty: 30 1RF Activity Restrictions/Add. Instructions Additional Instructions/Restrictions: You were evaluated in the emergency department today. Please refrain from drug use. 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 Return to the emergency department for new or worsening symptoms. Clinical Impressions Clinical Impression: Opiate overdose Qualifiers: Encounter type: initial encounter Injury intent: accidental or unintentional Qualified Code(s): T40.601A - Poisoning by unspecified narcotics, accidental (unintentional), initial encounter Instructions Patient Instructions: DI for Drug Overdose in Adults Discharge ED Provider: John Edmondson General Adult HPI <John Edmondson MD - Last Filed: 02/06/23 22:45> General Chief complaint: Overdose Stated comp
[2023-02-06 23:00] VITALS: BP 137/89; RESP 12
[2023-02-06 23:45] VITALS: BP 125/84; PULSE 70; O2SAT 96
[2023-02-07] VITALS (8 sets, daily range): BP systolic 93–129; BP diastolic 58–92; PULSE 52–62; RESP 11–14; TEMP 36.6; O2SAT 96
--- NOTE | 2023-02-07 03:37 | PC.NURSE ---
Benson curtis's friend states when pt is ready for discharge he is willing to greens picker pt. [phone]
--- NOTE | 2023-02-07 06:24 | PC.NURSE ---
I attempted to call the pts son, Lazarus, to see if he would be available to transfer the pt home.
--- NOTE | 2023-02-07 06:44 | PC.NURSE ---
I spoke with the pts friend, Benson, at her request. Benson states he will head this way to tile picker the pt.
== END 2023-02-07 07:07 | disposition home or self-care (01) ==
PROVIDERS: Emergency Provider Emergency Medicine
DX: T40.601A Poisoning by unspecified narcotics, accidental (unintentional), initial encounter (principal); F17.210 Nicotine dependence, cigarettes, uncomplicated; J44.9 Chronic obstructive pulmonary disease, unspecified; G40.909 Epilepsy, unspecified, not intractable, without status epilepticus; F41.9 Anxiety disorder, unspecified; E03.9 Hypothyroidism, unspecified
CPT/HCPCS: 99285

== ENCOUNTER 2023-03-10 18:40 | Outpatient (CLI) | payer OTHER, SELFPAY ==
[2023-03-10 19:10] LABS: Basophils # 0.1 K/mm3 (0-0.2); Basophils % 0.8 % (0.1-2.0); Eosinophils # 0.2 K/mm3 (0.0-0.4); Eosinophils % 1.9 % (0.1-12.0); Hemoglobin 14.3 g/dL (12.2-16.2); Lymphocytes # 2.9 K/mm3 (0.7-4.5); Lymphocytes % 29.3 % (10-50); Mean Corpuscular HGB Conc 31.7 g/dL (31.8-35.4); Mean Corpuscular Hemoglobin 32.4 pg (27.0-31.2); Mean Corpuscular Volume 102.1 fl (81-99); Mean Platelet Volume 8.5 fl (7.4-10.4); Monocytes # 0.6 K/mm3 (0.1-1.0); Neutrophils # 6.2 K/mm3 (1.8-7.8); Platelet Count 331 K/mm3 (142-424); Red Blood Count 4.41 M/mm3 (4.20-5.40); Red Cell Distribution Width 13.9 % (11.5-17.5)
[2023-03-10 19:46] LABS: Hemoglobin A1C 5.2 % (4.0-6.0)
[2023-03-10 20:11] LABS: Alanine Aminotransferase 40 U/L (12-78); Albumin/Globulin Ratio 1.3 (1.1-1.8); Alkaline Phosphatase 107 U/L (38-126); Anion Gap 10.5 mEq/L (5-15); Aspartate Amino Transferase 40 U/L (14-36); Bilirubin,Total 0.3 mg/dl (0.2-1.3); Blood Urea Nitrogen 14 mg/dl (7-17); Calcium 8.3 mg/dl (8.4-10.2); Carbon Dioxide 23 mmol/L (22.0-30.0); Chloride 108 mmol/L (98-107); Estimated Glomerular Filt Rate 43 ml/min (>60); GFR (African American) 51 ML/MIN (>60); Glucose 83 mg/dl (74-100); Potassium 4.5 mmoL/L (3.5-5.1); Sodium 137 mmol/L (136-145)
[2023-03-10 20:43] LABS: 25-OH Vitamin D, Total 35.6 ng/mL (30-100)
[2023-03-10 21:14] LABS: Vitamin B12 326 pg/mL (239-931)
[2023-03-11 09:38] LABS: Chol/HDL Ratio 5.4 (1-3.5); Cholesterol 248 mg/dl (140-200); HDL Cholesterol 46 mg/dl (40-60); Triglycerides 199 mg/dl (30-150); VLDL Cholesterol 40 mg/dL (0-40)
[2023-03-11 09:50] LABS: Direct LDL Cholesterol 139.55 mg/dL (100-129)
[2023-03-11 09:56] LABS: Triiodothryronine (T3) Uptake 30 % (23.5-40.5)
[2023-03-11 09:57] LABS: Free Thyroxine Index 1.1 ug/dL (5.93-13.13); T4 (Thyroxine) 3.6 ug/dl (5.53-11.0)
== END 2023-03-10 23:59 ==
LOC: LAB.DROPOF 18:41
PROVIDERS: Visit Provider Family Medicine
DX: R07.89 Other chest pain (principal); F32.9 Major depressive disorder, single episode, unspecified; F41.1 Generalized anxiety disorder; R20.2 Paresthesia of skin; N18.32 Chronic kidney disease, stage 3b; Z79.899 Other long term (current) drug therapy
CPT/HCPCS: 80053; 80061; 82306; 82607; 83036; 84436; 84443; 84479; 85025

== ENCOUNTER 2023-03-11 10:11 | Outpatient (CLI) | payer OTHER, SELFPAY | END 2023-03-11 23:59 | LOC: LAB.DROPOF 03-16 10:11 | PROVIDERS: PCP Family Medicine; Visit Provider Family Medicine | DX: Z00.00 Encounter for general adult medical examination without abnormal findings (principal); R79.89 Other specified abnormal findings of blood chemistry | CPT/HCPCS: 80061; 84436; 84443; 84479 ==

== ENCOUNTER 2023-04-13 10:03 | Outpatient (CLI) | payer OTHER, SELFPAY ==
--- NOTE | 2023-04-13 10:12 | XR_ITS ---
FINAL REPORT CLINICAL HISTORY: chest tightness, smoker, copd COMPARISON: 05/11/2020 FINDINGS: Two views of the chest were obtained. The heart size and pulmonary vascularity are within normal limits. The mediastinum is normal. No acute pulmonary abnormality is identified. There is no pneumothorax. The bony thorax is intact. IMPRESSION: No active cardiopulmonary disease. Reviewed, Interpreted and Dictated by Douglas Bustos III, MD Transcribed by Rosemary Klein Authenticated and [facility]
== END 2023-04-13 23:59 ==
LOC: RAD 10:05
PROVIDERS: PCP Physician Assistant; Visit Provider Family Medicine
DX: R07.89 Other chest pain (principal)
CPT/HCPCS: 71046

== ENCOUNTER 2023-04-22 15:00 | Outpatient (CLI) | payer OTHER, SELFPAY ==
[2023-04-22 18:26] LABS: Alanine Aminotransferase 16 U/L (12-78); Albumin Level 4.1 g/dl (3.5-5.0); Albumin/Globulin Ratio 1.5 (1.1-1.8); Alkaline Phosphatase 104 U/L (38-126); Anion Gap 11.2 mEq/L (5-15); Aspartate Amino Transferase 28 U/L (14-36); Bilirubin,Total 0.4 mg/dl (0.2-1.3); Blood Urea Nitrogen 13 mg/dl (7-17); Calcium 9.1 mg/dl (8.4-10.2); Carbon Dioxide 28 mmol/L (22.0-30.0); Chloride 107 mmol/L (98-107); Estimated Glomerular Filt Rate 39 ml/min (>60); GFR (African American) 47 ML/MIN (>60); Globulin 2.8 g/dL (1.3-3.2); Glucose 85 mg/dl (74-100); Potassium 4.2 mmoL/L (3.5-5.1); Sodium 142 mmol/L (136-145); Total Protein,Serum 6.9 g/dl (6.3-8.2)
[2023-04-22 18:44] LABS: Free Thyroxine Index 2.1 ug/dL (5.93-13.13); T4 (Thyroxine) 6.8 ug/dl (5.53-11.0); Triiodothryronine (T3) Uptake 31 % (23.5-40.5)
[2023-04-22 19:12] LABS: Creatinine,Urine Random 351 mg/dL (Not Estab.)
[2023-04-22 19:18] LABS: Vitamin B12 290 pg/mL (239-931)
== END 2023-04-22 23:59 ==
LOC: RT 15:01
PROVIDERS: PCP Family Medicine; Visit Provider Family Medicine
DX: R00.0 Tachycardia, unspecified (principal); N18.32 Chronic kidney disease, stage 3b; Z79.899 Other long term (current) drug therapy
CPT/HCPCS: 80053; 82043; 82570; 82607; 84436; 84443; 84479; 93270

== ENCOUNTER 2023-05-07 12:41 | Outpatient (CLI) | payer OTHER, SELFPAY ==
--- NOTE | 2023-05-07 12:44 | US_ITS ---
FINAL REPORT CLINICAL HISTORY: R80.9 - Proteinuria, unspecified COMPARISON: None FINDINGS: RENAL ULTRASOUND: The right kidney measures 11.5 cm in length. The left kidney measures 10.7 cm in length. There are probable small bilateral renal stones with posterior acoustical shadowing present. There is a prominent right renal pelvis but no definite hydronephrosis is identified. No focal renal masses are seen. IMPRESSION: Probable small bilateral renal stones. Prominent right renal pelvis but no definite hydronephrosis is seen. Reviewed, Interpreted and Dictated by Douglas Bustos III, MD Transcribed by Radhika Mcduffie Authenticated and [facility]
== END 2023-05-07 23:59 ==
LOC: RAD 12:42
PROVIDERS: PCP Physician Assistant; Visit Provider Family Medicine
DX: R80.9 Proteinuria, unspecified (principal)
CPT/HCPCS: 76770

== ENCOUNTER 2023-07-12 23:53 | Emergency (ER) | payer OTHER, SELFPAY ==
[2023-07-12 23:54] VITALS: BP 100/63; PULSE 46; RESP 13; TEMP 36.6; O2SAT 96; BMI 27.4
--- NOTE | 2023-07-12 23:57 | ECG_ITS ---
APPROVED REPORT Exam: Resting ECG HR:43 bpm ECG Measurements Heart Rate 43 AXES SC 177 P 74 QRSd 86 QRS 50 QT 507 T 48 QTc 455 Conclusion SINUS BRADYCARDIA BORDERLINE ECG UNCONFIRMED REPORT Electronically signed by : MICHEL DIAZ, 07/14/2023 05:31:07
--- NOTE | 2023-07-13 00:04 | PC.NURSE ---
Lac to forehead cleansed, seizure pads placed on bed
[2023-07-13 00:10] VITALS: BP 95/54; PULSE 43; RESP 14; O2SAT 97
--- NOTE | 2023-07-13 00:10 | XR_ITS ---
PROCEDURE INFORMATION: Exam: XR Chest Exam date and time: 07/13/2023 12:11 AM Age: 58 years old Clinical indication: Other: Seizures; Additional info: Seziure TECHNIQUE: Imaging protocol: Radiologic exam of the chest. Views: 1 view. COMPARISON: CR XR CHEST 2V 04/13/2023 10:15 AM FINDINGS: Lungs: No evidence of acute pulmonary disease or infiltrates Pleural spaces: No large effusion or pneumothorax. Heart/Mediastinum: No evidence of mediastinal widening or cardiac silhouette enlargement; the mediastinum and heart appear within normal limits for contour and size. Bones/joints: No evidence of acute osseous abnormalities within the visualized portions of the thoracic spine and ribs. Osseous structures appear appropriate for patient age. IMPRESSION: No dense parenchymal consolidation, pleural effusion, or pneumothorax.
--- NOTE | 2023-07-13 00:10 | CT_ITS ---
PROCEDURE INFORMATION: Exam: CT Cervical Spine Without Contrast Exam date and time: 07/13/2023 12:24 AM Age: 58 years old Clinical indication: Other: Seizure TECHNIQUE: Imaging protocol: Computed tomography of the cervical spine without contrast. Radiation optimization: All CT scans at this facility use at least one of these dose optimization techniques: automated exposure control; mA and/or kV adjustment per patient size (includes targeted exams where dose is matched to clinical indication); or iterative reconstruction. COMPARISON: CT HEAD/BRAIN WO CON 07/13/2023 12:22 AM FINDINGS: Bones: Spinal alignment is normal. No fracture or bone destruction. Predental space narrowing and proliferative changes around the dens consistent with arthritis. Lungs: Lung apices are normal. Soft tissues: Unremarkable. IMPRESSION: 1. Spinal alignment is normal. 2. No fracture or bone destruction. 3. Predental space narrowing and proliferative changes around the dens consistent with arthritis.
--- NOTE | 2023-07-13 00:10 | CT_ITS ---
PROCEDURE INFORMATION: Exam: CT Head Without Contrast Exam date and time: 07/13/2023 12:22 AM Age: 58 years old Clinical indication: Other: Seizure TECHNIQUE: Imaging protocol: Computed tomography of the head without contrast. Radiation optimization: All CT scans at this facility use at least one of these dose optimization techniques: automated exposure control; mA and/or kV adjustment per patient size (includes targeted exams where dose is matched to clinical indication); or iterative reconstruction. COMPARISON: CT HEAD/BRAIN WO CON 05/11/2020 2:07 AM FINDINGS: Brain: Normal. No hemorrhage. Unremarkable white matter. No mass effect. Cerebral ventricles: No ventriculomegaly. Pituitary gland and sella: Negative Paranasal sinuses: Visualized sinuses are unremarkable. No fluid levels. Mastoid air cells: Visualized mastoid air cells are well aerated. Orbital cavities: Negative. Parotid and submandibular glands: Negative Bones: Unremarkable. No acute fracture. Soft tissues: Unremarkable. Vasculature: Negative. IMPRESSION: 1. No acute intracranial abnormality. 2. MRI may be helpful to look for cortical basis for seizure activity.
[2023-07-13] MEDS: levETIRAcetam 2,000 MG in 0.9 % SODIUM CHLORIDE 100 ML 240 MG IV (00:16)
--- NOTE | 2023-07-13 00:16 | ED_ITS ---
Discharge Plan Disposition Patient Disposition: Home, Self-Care Condition: Good Prescriptions Prescriptions: No Action baclofen 20 mg tablet 20 mg PO DAILY albuterol sulfate [Ventolin HFA] 90 mcg/actuation HFA aerosol inhaler See Rx Instructions .ROUTE .COMPLEX Qty: 18 0RF Dose Instruction: INHALE 2 PUFFS BY MOUTH EVERY 6 HOURS Rx Instructions: INHALE 2 PUFFS BY MOUTH EVERY 6 HOURS Anoro Ellipta 62.5-25 mcg/actuation blister with device 1 inh inhalation DAILY Qty: 60 3RF metoprolol succinate 50 mg tablet extended release 24 hr See Rx Instructions .ROUTE .COMPLEX Qty: 90 3RF Dose Instruction: TAKE ONE TABLET BY MOUTH ONCE A DAY Rx Instructions: TAKE ONE TABLET BY MOUTH ONCE A DAY levothyroxine 150 mcg tablet See Rx Instructions .ROUTE .COMPLEX Qty: 30 3RF Dose Instruction: TAKE ONE TABLET BY MOUTH ONCE A DAY Rx Instructions: TAKE ONE TABLET BY MOUTH ONCE A DAY ipratropium-albuterol 0.5 mg-3 mg(2.5 mg base)/3 mL solution for nebulization See Rx Instructions .ROUTE .COMPLEX Qty: 180 10RF Dose Instruction: INHALE CONTENTS OF 1 VIAL VIA NEBULIZER FOUR TIMES A DAY NEEDED FOR SHORTNESS OF BREATH OR WHEEZING Rx Instructions: INHALE CONTENTS OF 1 VIAL VIA NEBULIZER FOUR TIMES A DAY NEEDED FOR SHORTNESS OF BREATH OR WHEEZING famotidine 40 mg tablet See Rx Instructions .ROUTE .COMPLEX Qty: 30 3RF Dose Instruction: TAKE 1 TABLET BY MOUTH EVERY DAY Rx Instructions: TAKE 1 TABLET BY MOUTH EVERY DAY cyanocobalamin (vitamin B-12) [Vitamin B-12] 5,000 mcg tablet, sublingual See Rx Instructions .ROUTE .COMPLEX Qty: 30 10RF Dose Instruction: DISSOLVE 1 TABLET UNDER THE TONGUE DAILY Rx Instructions: DISSOLVE 1 TABLET UNDER THE TONGUE DAILY Farxiga 5 mg tablet See Rx Instructions .ROUTE .COMPLEX Qty: 30 3RF Dose Instruction: TAKE ONE TABLET BY MOUTH ONCE A DAY Rx Instructions: TAKE ONE TABLET BY MOUTH ONCE A DAY topiramate 200 mg tablet 200 mg PO BID Qty: 180 3RF atorvastatin [Lipitor] 20 mg tablet 20 mg PO DAILY Qty: 30 2RF sumatriptan succinate 25 mg tablet 25 mg PO ONCE MDD 2 tabs PRN (Reason: migraines) Qty: 14 0RF gabapentin 800 mg tablet 800 mg PO TID lisinopril 10 mg tablet 10 mg PO DAILY Qty: 30 2RF levetiracetam 750 mg tablet 750 mg PO ropinirole 1 mg tablet 1 mg PO Vraylar 4.5 mg capsule 4.5 mg PO DAILY Qty: 30 2RF paroxetine HCl [Paxil] 20 mg tablet 20 mg PO DAILY Qty: 30 2RF meloxicam 15 mg tablet See Rx Instructions .ROUTE .COMPLEX Qty: 30 0RF Dose Instruction: TAKE ONE TABLET BY MOUTH ONCE A DAY Rx Instructions: TAKE ONE TABLET BY MOUTH ONCE A DAY levocetirizine 5 mg tablet See Rx Instructions .ROUTE .COMPLEX Qty: 30 10RF Dose Instruction: TAKE 1 TABLET BY MOUTH DAILY Rx Instructions: TAKE 1 TABLET BY MOUTH DAILY ferrous sulfate [FeroSul] 325 mg (65 mg iron) tablet See Rx Instructions .ROUTE .COMPLEX Qty: 30 10RF Dose Instruction: TAKE 1 TABLET BY MOUTH DAILY Rx Instructions: TAKE 1 TABLET BY MOUTH DAILY naloxone [Narcan] 4 mg/actuation spray,non-aerosol 4 mg intranasal Q2M PRN (Reason: opioid overdose) Qty: 2 0RF Rx Instructions: spray 1 dose into ONE nostril; alternate nostrils w each dose until help arrives Activity Restrictions/Add. Instructions Additional Instructions/Restrictions: You were evaluated in the ER. You are appropriate for discharge at this time. Take all of your medications as prescribed, do not skip doses. The wounds will heal, do not apply anything to them until they are completely healed. Keep them clean and dry. Your stitches will absorb and fall out on their own. Once the wounds are completely healed, you can apply sunscreen or vitamin E oil to limit scarring. Avoid all illicit substances, stop using marijuana, do not use any other drugs or alcohol. These can increase your risk of seizure. Make an appointment with your neurologist for reevaluation as soon as possible to discuss breakthrough seizure. Also make an appointment with your primary care physician for reevaluation in 2 to 3 days. Return to the ER with new, worsening, or otherwise concerning symptoms. Clinical Impressions Clinical Impression: Seizure, Noncompliance with medication regimen, Face lacerations Instructions Patient Instructions: DI for Seizure Disorder -- Adult, DI for Seizure (Not Epilepsy/Seizure Disorder), DI for Seizure Disorder -- Child Discharge ED Provider: Chen,Mikalah General Adult HPI General Chief complaint: Seizure Stated complaint: seizure Time Seen by Provider: 07/12/23 23:59 Mode of Arrival: EMS Source of Information: Patient and EMS Limitations: Physical Limitations Description of Symptoms (Recalled from ER Triage Doc. by RN): Pt presents to ER via EMS for seizure/fall. Pt has hx of seizures. Pt is lethargic but able to respond appropriately. Pt rates pain 5/10 at this time. History of Present Illness HPI narrative: 58-year-old female with history of epilepsy, opioid use, CKD, hypothyroid, COPD presents to the ER with concerns of seizure-like activity. Patient was found on [address] with seizure-like activity. Unfortunately there was no report of patient's seizure duration or morphology. Patient was found with laceration to the scalp. She is complaining of headache. Patient reports that she missed a dose of her seizure medication yesterday and that usually when she misses a dose she has seizures. Patient denies any IV drugs but admits to smoking marijuana today. She denies any alcohol intake. Patient denies chest pain, shortness of breath, nausea, vomiting, diarrhea, dysuria,, neck pain, back pain. She denies any recent illness. Related Data Home Medications Medication Instructions Recorded Confirmed levetiracetam 750 mg tablet 750 mg PO 03/04/22 07/12/23 baclofen 20 mg tablet 20 mg PO DAILY 07/15/22 07/12/23 ropinirole 1 mg tablet 1 mg PO 12/28/22 07/12/23 gabapentin 800 mg tablet 800 mg PO TID 04/22/23 07/12/23 Previous Rx's Medication Instructions Recorded meloxicam 15 mg tablet See Rx Instructions .Route 10/28/22 .COMPLEX #30 tabs naloxone 4 mg/actuation nasal 4 mg intranasal Q2M PRN opioid 02/07/23 spray (Narcan) overdose #2 ea ferrous sulfate 325 mg (65 mg See Rx Instructions .Route 03/09/23 iron) tablet (FeroSul) .COMPLEX #30 tabs levocetirizine 5 mg tablet See Rx Instructions .Route 03/09/23 .COMPLEX #30 tabs albuterol sulfate 90 mcg/actuation See Rx Instructions .Route 03/10/23 aerosol inhaler (Ventolin HFA) .COMPLEX #18 grams cyanocobalamin (vitamin B-12) See Rx Instructions .Route 03/10/23 5,000 mcg sublingual tablet .COMPLEX #30 tabs (Vitamin B-12) dapagliflozin propanediol 5 mg See Rx Instructions .Route 03/10/23 tablet (Farxiga) .COMPLEX #30 tabs famotidine 40 mg tablet See Rx Instructions .Route 03/10/23 .COMPLEX #30 tabs ipratropium 0.5 mg-albuterol 3 mg See Rx Instructions .Route 03/10/23 (2.5 mg base)/3 mL nebulization .COMPLEX #180 mL soln levothyroxine 150 mcg tablet See Rx Instructions .Route 03/10/23 .COMPLEX #30 tabs metoprolol succinate 50 mg See Rx Instructions .Route 03/10/23 tablet,extended release 24 hr .COMPLEX #90 tabs topiramate 200 mg tablet 200 mg PO BID tremor #180 tabs 03/10/23 umeclidinium 62.5 mcg-vilanterol 1 inh inhalation DAILY #60 ea 03/10/23 25 mcg/actuation powdr for inhalation (Anoro Ellipta) atorvastatin 20 mg tablet (Lipitor) 20 mg PO DAILY #30 tabs 03/12/23 sumatriptan succinate 25 mg tablet 25 mg PO ONCE PRN migraines #14 04/22/23 tabs lisinopril 10 mg tablet 10 mg PO DAILY #30 tabs 04/23/23 cariprazine 4.5 mg capsule 4.5 mg PO DAILY #30 caps 06/14/23 (Vraylar) paroxetine HCl 20 mg tablet (Paxil) 20 mg PO DAILY #30 tabs 06/14/23 Allergies Allergy/AdvReac Type Severity Reaction Status Date / Time latex [LATEX] Allergy Severe S-SWELLS-OR Verified 07/12/23 09:18 AL/THROAT tramadol [TRAMADOL] Allergy Unknown NA-NAUSEA/V Verified 07/12/23 09:18 OMITING ANESTHETIC USED FOR D&C Allergy Unknown KEPT ME Uncoded 12/28/22 14:05 [facility]EP TO [facility] Disclaimer: The information contained in this section may have been updated after the patient was seen, as this information can be updated by other users. Medical History Tympanosclerosis Perforation of right tympanic membrane Impacted cerumen of right ear Anxiety Depression Exposure to hepatitis C Hypothyroidism Otitis media, left Dyspnea Tingling of both feet Edema COPD (chronic obstructive pulmonary disease) Nicotine dependence Smoker Social History Smoking Status: Current every day smoker tobacco type: cigarettes packs per day: 1 alcohol intake: never substance use type: marijuana current occupational status: unemployed Travel in the last 8 weeks: None number of children: 5 ROS Obtained: Yes All systems reviewed & no additional complaints except as documented Constitutional Constitutional: Denies chills, Denies fever(s), Reports headache(s) and Denies weakness Eyes Eyes: Denies change in vision ENT Ears, Nose, Mouth, and Throat: Denies dizziness, Reports headache(s), Denies nasal congestion and Denies sore throat Cardiovascular Cardiovascular: Denies chest pain, Denies dyspnea and Denies leg edema Respiratory Respiratory: Denies cough and Denies dyspnea Gastrointestinal Gastrointestingal: Denies constipation, diarrhea, nausea or vomiting Genitourinary Female Genitourinary: Denies dysuria Musculoskeletal Musculoskeletal: Denies arthralgias, Denies myalgias, Denies numbness and Denies tingling Integumentary/Breasts Skin/Breast: Denies change in pigmentation Neurologic Neurologic: Denies dizziness, Reports headache(s), Denies numbness, Reports seizure-like activity, Denies tingling and Denies weakness Physical Exam General General appearance: alert and in no apparent distress Head Head exam: normocephalic and other (2 cm vertical linear laceration extending from the hairline onto the left forehead, hemostatic, 1 cm laceration on the bottom side of the chin, hemostatic, relatively superficial, no other findings of skull or scalp trauma) Eye Eye exam: Present PERRL, EOMI and other (No nystagmus) ENT ENT exam: Present mucous membranes moist Neck Neck exam: Present normal inspection and other (Cervical collar in place) Chest Chest inspection: Present symmetric chest wall rise; Absent tenderness Respiratory Respiratory exam: Present normal lung sounds bilaterally; Absent respiratory distress, wheezes or stridor Cardiovascular Cardiovascular exam: Present normal rhythm and bradycardia Abdominal Exam Abdominal exam: Present soft; Absent distention, tenderness, guarding or rebound Extremities Exam Extremities exam: Present full ROM; Absent tenderness Neurological Exam Neurological exam: Present alert, oriented X3, CN II-XII intact and other (Patient is somewhat sleepy, GCS 14); Absent motor sensory deficit Psychiatric Psychiatric exam: Present normal affect and normal mood Skin Skin exam: Present warm and dry Medical Decision Making Medical Records Medical records reviewed: Yes I reviewed the patient's medical records. Bryson Inquiry Pt receiving controlled substance: No Vital Signs: 07/12/23 23:54 07/13/23 00:10 07/13/23 00:32 Temperature 97.8 F Temperature Source Oral Pulse Rate 43 L 44 L Pulse Rate [Left] 46 L Respiratory Rate 13 14 16 Blood Pressure 95/54 L 117/72 Blood Pressure [Right Arm] 100/63 L Blood Pressure Mean 60 87 Blood Pressure Mean [Right Arm] 75 02 Sat by Pulse Oximetry 96 97 96 Oxygen Delivery Method Room Air 07/13/23 01:01 07/13/23 01:31 07/13/23 01:43 Temperature Temperature Source Pulse Rate 43 L 43 L 67 Pulse Rate [Left] Respiratory Rate 16 14 18 Blood Pressure 126/64 111/65 Blood Pressure [Right Arm] Blood Pressure Mean 90 81 Blood Pressure Mean [Right Arm] 02 Sat by Pulse Oximetry 97 97 96 Oxygen Delivery Method Room Air Lab Data Lab Results 07/13/23 00:00: WBC 10.6, RBC 4.20, Hgb 13.7, Hct 43.2, MCV 102.9 H, MCH 32.7 H, MCHC 31.8, RDW 13.8, Plt Count 323, MPV 9.0, Neut % (Auto) 48.2, Lymph % (Auto) 42.8, [place] % (Auto) 6.1, Eos % (Auto) 2.1, Baso % (Auto) 0.9, Neut # (Auto) 5.1, Lymph # (Auto) 4.5, [place] # (Auto) 0.6, Eos # (Auto) 0.2, Baso # (Auto) 0.1, PT 10.7, INR 0.99, Sodium 139, Potassium 3.6, Chloride 112 H, Carbon Dioxide 19 L, Anion Gap 11.6, BUN 10, Creatinine 1.20 H, Estimated Creat Clear 64, Estimated GFR 46 L, Est GFR ( Amer) 56 L, Glucose 130 H, Calcium 8.9, Total Bilirubin 0.3, AST 30, ALT 24, Alkaline Phosphatase 114, Troponin I < 0.01, Total Protein 6.9, Albumin 3.6, Globulin 3.3 H, Albumin/Globulin Ratio 1.1, TSH 21.20 H, Free T4 1.01 07/13/23 01:41: Urine Color Yellow, Urine Appearance Clear, Urine pH 6.5, Ur Specific [place] 1.020, Urine Protein Negative, Urine Glucose (UA) 3+, Urine Ketones Negative, Urine Blood 1+, Urine Nitrate Negative, Urine Bilirubin Negative, Urine Urobilinogen 0.2, Ur Leukocyte Esterase 1+ A, Urine RBC 3-5, Urine WBC 5-10, Ur Squamous Epith Cells 3-5, Urine Bacteria 1+, Urine Mucus 1+ 07/13/23 00:00 07/13/23 00:00 Orders (Tests/Meds): ED MEDICATIONS Discontinued Medications Generic Name Dose Route Start Last Admin Trade Name Heather PRN Reason Stop Dose Admin Cocaine HCl 1 ml 07/13/23 00:55 07/13/23 01:06 Cocaine 4% Topical Soln 4ml Bottle TP 07/13/23 00:56 1 ml ONCE ONE Administration Epinephrine HCl 1 mg 07/13/23 00:55 07/13/23 01:06 Epinephrine 1 Mg/Ml Ampul TP 07/13/23 00:56 1 mg ONCE ONE Administration Levetiracetam 2,000 mg/ Sodium 120 mls @ 240 mls/hr 07/13/23 00:11 07/13/23 00:16 Chloride IV 07/13/23 00:12 240 mls/hr ONCE ONE Administration Lactated Ringer's 1,000 mls @ 999 mls/hr 07/13/23 00:12 07/13/23 00:20 Lactated Ringer's 1000 Ml Bag IV 07/13/23 01:12 999 mls/hr .Q1H1M ONE Administration Lidocaine HCl 1 ml 07/13/23 00:55 07/13/23 01:06 Lidocaine 2% Urojet 10ml TP 07/13/23 00:56 1 ml ONCE ONE Administration Naloxone HCl 0.4 mg 07/13/23 01:20 07/13/23 01:40 Naloxone 0.4mg/Ml Vial IV 07/13/23 01:21 Not Given ONCE ONE Naloxone HCl 2 mg 07/13/23 01:25 07/13/23 01:40 Naloxone 2mg/2ml Syringe IV 07/13/23 01:26 Not Given ONCE ONE Naloxone HCl 0.5 mg 07/13/23 01:27 07/13/23 01:28 Naloxone 2mg/2ml Syringe IV 07/13/23 01:28 0.5 mg ONCE ONE Administration ORDERS Category Date Time Status CT cervical spine wo con Stat Cat Scan 07/13/23 00:[address] head/brain wo con Stat Cat Scan 07/13/23 00:10 Completed XR chest portable Stat Exams 07/13/23 00:10 Taken Complete Blood Count Auto Diff Stat Lab 07/13/23 00:00 Completed Comprehensive Metabolic Panel Stat Lab 07/13/23 00:00 Completed Drug Screen,Urine Stat Lab 07/13/23 01:41 Received Free T4 (Free Thyroxine) Stat Lab 07/13/23 00:00 Completed Prothrombin Time INR Stat Lab 07/13/23 00:00 Completed TSH [Thyroid Stimulating Hormone] Stat Lab 07/13/23 00:00 Completed Troponin I Q3H Lab 07/13/23 03:15 Ordered Troponin I Q3H Lab 07/13/23 06:15 Ordered Troponin I Stat Lab 07/13/23 00:00 Completed Urinalysis and Microscopic Stat Lab 07/13/23 01:41 Completed Urine Culture Stat Micro 07/13/23 01:41 Received Medical Decision Narrative: In summary, this 58year old female presents to the emergency department today with seizure-like activity, scalp laceration. On initial evaluation patient is hemodynamically stable though she is mildly bradycardic, she is a GCS 14 and somewhat sleepy, reportedly per EMS her mental status has improved since they initially found her on scene. Patient has scalp laceration but no other findings of injury on exam, no focal neurologic deficits, remainder of exam benign. Differential diagnosis includes but is not limited to seizure, syncope, intracranial bleed, cervical spine injury, infection, medication noncompliance, substance abuse. ECG personally interpreted demonstrates sinus bradycardia, rate 43, normal axis, [place] 177, QTc 455, normal, no STEMI. EMS is familiar with this patient and states they often find her bradycardic, however my review of records from the last year does not demonstrate bradycardia on any documented vitals. Heart rate runs 70s to 100s based on my review of recent family medicine, ENT, ER notes. Patient received 2 g Keppra load as well as IV fluids for treatment. Labs personally reviewed demonstrate no leukocytosis or anemia, CMP with hyperchloremia, mildly elevated creatinine at 1.20, similar to prior based off my review of recent labs, GFR improved from previous, initial troponin undetectably low at less than 0.01, reassuring against acute cardiac event, especially in the setting of patient denying any chest pain. UA negative for findings of infection. Patient does have few WBCs and leukocyte esterase but negative nitrates and only 1+ bacteria. Since she is asymptomatic, and this was contaminated with few squamous cells, I do not believe she requires treatment. XR personally interpreted demonstrates no acute intrathoracic abnormality, see radiology read final interpretation. CT imaging personally interpreted demonstrate no acute intracranial abnormality on CT head, no obvious bleed, CT C-spine is without acute traumatic injury, see radiology read for final interpretations. On reassessment patient's heart rate improved when she was set up. C-collar was cleared by me. She continues to be bradycardic with heart rates in the 40s, blood pressure was good. Because patient has a history of polysubstance abuse, I did trial a small dose of naloxone to see if it would cause any change in her heart rate or improve her slightly sedated appearance. It did not cause any change. Patient ambulated to the restroom and her heart rate appropriately improved to the 60s and 70s. She reported to the nurse at that time that she took her sleeping pills before coming to the ER. This would likely fully explain both her mildly sedated affect and bradycardia. Since she has appropriate improvement in her heart rate with activity, and she is asymptomatic from it, I do not believe she requires further workup or intervention of her bradycardia at this time. Scalp laceration and chin laceration were repaired. See procedure note for details. On further reassessment, patient continues to be stable and is appropriate for discharge at this time. She was instructed to take her Keppra regularly and to make an appointment with her neurologist for reevaluation as soon as possible. She was also instructed to avoid all illicit substances as they decrease the seizure threshold. Patient was given instructions on symptomatic management, follow up instructions, and return precautions for the emergency department. Patient indicated understanding and was discharged in stable condition. Procedures Laceration Laceration 1: Site: face (Chin) Size (cm): 1 Description: linear Depth: simple, single layer Pre-repair: irrigated extensively Skin layer closed with: Dermabond Laceration 2: Site: face (Left forehead) Side (If applicable): left Size (cm): 2 Description: linear Depth: involves subcutaneous layer Local Anesthetic: other anesthetic (Topical lidocaine/epinephrine/cocaine) Pre-repair: irrigated extensively Skin layer closed with: other (Fast gut) Size (cm): 5-0 Number of sutures: 4 Technique: simple, interrupted Subcutaneous layer closed with: chromic gut Size: 4-0 Number of sutures: 2 Critical Care Critical Care Time Critical Care Time: No
[2023-07-13] MEDS: LACTATED RINGERS 1000ML 1,000 ML 999 ML IV (00:20)
[2023-07-13 00:31] LABS: Chloride 112 mmol/L (98-107); Potassium 3.6 mmoL/L (3.5-5.1); Sodium 139 mmol/L (136-145)
[2023-07-13 00:32] VITALS: BP 117/72; PULSE 44; RESP 16; O2SAT 96
[2023-07-13 00:33] LABS: Basophils # 0.1 K/mm3 (0-0.2); Basophils % 0.9 % (0.1-2.0); Eosinophils # 0.2 K/mm3 (0.0-0.4); Eosinophils % 2.1 % (0.1-12.0); Hematocrit 43.2 % (37.0-47.0); Hemoglobin 13.7 g/dL (12.2-16.2); Lymphocytes # 4.5 K/mm3 (0.7-4.5); Lymphocytes % 42.8 % (10-50); Mean Corpuscular HGB Conc 31.8 g/dL (31.8-35.4); Mean Corpuscular Hemoglobin 32.7 pg (27.0-31.2); Mean Corpuscular Volume 102.9 fl (81-99); Monocytes # 0.6 K/mm3 (0.1-1.0); Monocytes % 6.1 % (1.7-9.3); Neutrophils # 5.1 K/mm3 (1.8-7.8); Neutrophils % 48.2 % (37.0-80.0); Platelet Count 323 K/mm3 (142-424); Red Cell Distribution Width 13.8 % (11.5-17.5); White Blood Count 10.6 K/mm3 (4.8-10.8)
[2023-07-13 00:34] LABS: Alanine Aminotransferase 24 U/L (12-78); Albumin Level 3.6 g/dl (3.5-5.0); Albumin/Globulin Ratio 1.1 (1.1-1.8); Alkaline Phosphatase 114 U/L (38-126); Anion Gap 11.6 mEq/L (5-15); Aspartate Amino Transferase 30 U/L (14-36); Bilirubin,Total 0.3 mg/dl (0.2-1.3); Blood Urea Nitrogen 10 mg/dl (7-17); Calcium 8.9 mg/dl (8.4-10.2); Carbon Dioxide 19 mmol/L (22.0-30.0); Creatinine Clearance Estimated 64 mL/min (50-200); Estimated Glomerular Filt Rate 46 ml/min (>60); GFR (African American) 56 ML/MIN (>60); Globulin 3.3 g/dL (1.3-3.2); Glucose 130 mg/dl (74-100); Total Protein,Serum 6.9 g/dl (6.3-8.2)
[2023-07-13 00:36] LABS: INR 0.99 (0.9-1.1); Prothrombin Time 10.7 seconds (10.1-12.5)
[2023-07-13 00:49] LABS: Troponin I < 0.01 ng/ml (0.00-0.034)
[2023-07-13 01:01] VITALS: BP 126/64; PULSE 43; RESP 16; O2SAT 97
[2023-07-13] MEDS: LIDOCAINE 2% UROJET 10ML TP (01:06)
[2023-07-13] MEDS: EPINEPHrine 1 MG/ML AMPUL TP (01:06)
[2023-07-13] MEDS: COCAINE 4% TOPICAL SOLN 4ML BOTTLE 1 ML TP (01:06)
[2023-07-13 01:26] LABS: Free T4 (Free Thyroxine) 1.01 ng/dl (0.78-2.19)
[2023-07-13] MEDS: NALOXONE 2MG/2ML SYRINGE 0.5 MG IV (01:28)
[2023-07-13 01:31] VITALS: BP 111/65; PULSE 43; RESP 14; O2SAT 97
[2023-07-13 01:43] VITALS: PULSE 67; RESP 18; O2SAT 96
[2023-07-13 01:50] LABS: Microscopic, Urine URINE MICROSCOPIC (MICROSCOPIC)
[2023-07-13 01:52] LABS: Appearance,Urine CLEAR (Clear); Bilirubin,Urine Negative (Negative); Blood, Urine 1+ (Negative); Color,Urine YELLOW (Yellow); Glucose,Urine (UA) 3+ (Negative); Ketones,Urine Negative (Negative); Leukocyte Esterase,Urine 1+ (Negative); Nitrate,Urine Negative (Negative); PH,Urine 6.5 (5.0-8.5); Protein,Urine Negative (Negative); Urobilinogen,Urine 0.2 EU/dl (0.2)
[2023-07-13 02:04] LABS: Bacteria,Urine 1+ /lpf; Mucus,Urine 1+ /lpf
[2023-07-13 02:05] LABS: Barbiturates Screen,Urine Negative ng/ml (<200)
[2023-07-13 02:06] LABS: Amphetamine/Metha Screen,Urine Positive ng/ml (<1000); Benzodiazepines Screen,Urine Negative ng/ml (<200)
[2023-07-13 02:07] LABS: Cannabinoid Screen,Urine Positive ng/ml (<50); Cocaine Screen,Urine Negative ng/ml (<300)
[2023-07-13 02:08] LABS: Methadone Screen,Urine Negative ng/ml (<300)
[2023-07-13 02:09] LABS: Opiate Screen,Urine Negative ng/ml (<300); Phencyclidine Screen,Urine Negative ng/ml (<25)
[2023-07-13 02:12] VITALS: BP 115/65; PULSE 41; RESP 12; TEMP 36.6; O2SAT 97
== END 2023-07-13 02:23 | disposition home or self-care (01) ==
PROVIDERS: Emergency Provider Emergency Medicine; PCP Physician Assistant
DX: G40.919 Epilepsy, unspecified, intractable, without status epilepticus (principal); R00.1 Bradycardia, unspecified; S01.81XA Laceration without foreign body of other part of head, initial encounter; B96.89 Other specified bacterial agents as the cause of diseases classified elsewhere; F17.210 Nicotine dependence, cigarettes, uncomplicated; J44.9 Chronic obstructive pulmonary disease, unspecified; E03.9 Hypothyroidism, unspecified; N18.9 Chronic kidney disease, unspecified; W19.XXXA Unspecified fall, initial encounter
CPT/HCPCS: 12013; 70450; 71045; 72125; 80050; 80053; 80307; 81001; 84439; 84443; 84484; 85025; 85610; 87086; 93005; 96361; 96374; 96375; 99285; J1953; J2310

== ENCOUNTER 2023-12-07 11:58 | Emergency (ER) | payer MEDICAID, SELFPAY ==
[2023-12-07 11:59] VITALS: BP 120/74; PULSE 56; RESP 18; TEMP 36.4; O2SAT 98; BMI 29.0
--- NOTE | 2023-12-07 12:09 | XR_ITS ---
FINAL REPORT CLINICAL HISTORY: Fell out of bed, acute right ankle pain. FINDINGS: RIGHT ANKLE 3 views of the right ankle were obtained. There is no acute fracture or dislocation. The mortise is intact. Visualized joint spaces are normally aligned. There is a plantar calcaneal spur. There is lateral soft tissue swelling. IMPRESSION: No acute bony abnormality. Lateral soft tissue swelling. Reviewed, Interpreted and Dictated by Douglas Bustos III, MD Transcribed by Kenzie Lainez PA-C Authenticated and [facility]
--- NOTE | 2023-12-07 12:12 | HMH.EDGENADL ---
Discharge Plan Disposition Patient Disposition: Home, Self-Care Condition: Good Prescriptions Prescriptions: New ketorolac 10 mg tablet 10 mg PO Q8H PRN (Reason: pain) 5 Days Qty: 14 0RF Discontinued meloxicam 15 mg tablet See Rx Instructions .ROUTE .COMPLEX Qty: 30 0RF Dose Instruction: TAKE ONE TABLET BY MOUTH ONCE A DAY Rx Instructions: TAKE ONE TABLET BY MOUTH ONCE A DAY No Action baclofen 20 mg tablet 20 mg PO DAILY albuterol sulfate [Ventolin HFA] 90 mcg/actuation HFA aerosol inhaler See Rx Instructions .ROUTE .COMPLEX Qty: 18 0RF Dose Instruction: INHALE 2 PUFFS BY MOUTH EVERY 6 HOURS Rx Instructions: INHALE 2 PUFFS BY MOUTH EVERY 6 HOURS Anoro Ellipta 62.5-25 mcg/actuation blister with device 1 inh inhalation DAILY Qty: 60 3RF metoprolol succinate 50 mg tablet extended release 24 hr See Rx Instructions .ROUTE .COMPLEX Qty: 90 3RF Dose Instruction: TAKE ONE TABLET BY MOUTH ONCE A DAY Rx Instructions: TAKE ONE TABLET BY MOUTH ONCE A DAY levothyroxine 150 mcg tablet See Rx Instructions .ROUTE .COMPLEX Qty: 30 3RF Dose Instruction: TAKE ONE TABLET BY MOUTH ONCE A DAY Rx Instructions: TAKE ONE TABLET BY MOUTH ONCE A DAY ipratropium-albuterol 0.5 mg-3 mg(2.5 mg base)/3 mL solution for nebulization See Rx Instructions .ROUTE .COMPLEX Qty: 180 10RF Dose Instruction: INHALE CONTENTS OF 1 VIAL VIA NEBULIZER FOUR TIMES A DAY NEEDED FOR SHORTNESS OF BREATH OR WHEEZING Rx Instructions: INHALE CONTENTS OF 1 VIAL VIA NEBULIZER FOUR TIMES A DAY NEEDED FOR SHORTNESS OF BREATH OR WHEEZING cyanocobalamin (vitamin B-12) [Vitamin B-12] 5,000 mcg tablet, sublingual See Rx Instructions .ROUTE .COMPLEX Qty: 30 10RF Dose Instruction: DISSOLVE 1 TABLET UNDER THE TONGUE DAILY Rx Instructions: DISSOLVE 1 TABLET UNDER THE TONGUE DAILY Farxiga 5 mg tablet See Rx Instructions .ROUTE .COMPLEX Qty: 30 3RF Dose Instruction: TAKE ONE TABLET BY MOUTH ONCE A DAY Rx Instructions: TAKE ONE TABLET BY MOUTH ONCE A DAY topiramate 200 mg tablet 200 mg PO BID Qty: 180 3RF atorvastatin [Lipitor] 20 mg tablet 20 mg PO DAILY Qty: 30 2RF sumatriptan succinate 25 mg tablet 25 mg PO ONCE MDD 2 tabs PRN (Reason: migraines) Qty: 14 0RF gabapentin 800 mg tablet 800 mg PO TID lisinopril 10 mg tablet 10 mg PO DAILY Qty: 30 2RF pramipexole 1.5 mg tablet PO levetiracetam 750 mg tablet 750 mg PO ropinirole 1 mg tablet 1 mg PO levocetirizine 5 mg tablet See Rx Instructions .ROUTE .COMPLEX Qty: 30 10RF Dose Instruction: TAKE 1 TABLET BY MOUTH DAILY Rx Instructions: TAKE 1 TABLET BY MOUTH DAILY ferrous sulfate [FeroSul] 325 mg (65 mg iron) tablet See Rx Instructions .ROUTE .COMPLEX Qty: 30 10RF Dose Instruction: TAKE 1 TABLET BY MOUTH DAILY Rx Instructions: TAKE 1 TABLET BY MOUTH DAILY Vraylar 4.5 mg capsule 4.5 mg PO DAILY Qty: 30 2RF paroxetine HCl [Paxil] 20 mg tablet 20 mg PO DAILY Qty: 30 2RF famotidine 40 mg tablet See Rx Instructions .ROUTE .COMPLEX Qty: 90 3RF Dose Instruction: TAKE 1 TABLET BY MOUTH EVERY DAY Rx Instructions: TAKE 1 TABLET BY MOUTH EVERY DAY naloxone [Narcan] 4 mg/actuation spray,non-aerosol 4 mg intranasal Q2M PRN (Reason: opioid overdose) Qty: 2 0RF Rx Instructions: spray 1 dose into ONE nostril; alternate nostrils w each dose until help arrives Referrals Follow up/Referrals: Tash Subramanian PA [Primary Care Provider] - See instructions Activity Restrictions/Add. Instructions Additional Instructions/Restrictions: As we discussed, your x-ray did not show any broken bones. It is likely you sprained your ankle in this case. Please bear weight as tolerated. I have prescribed a pain medication for you to use as needed. Please return with any new or worsening symptoms. Clinical Impressions Clinical Impression: Ankle sprain Instructions Patient Instructions: Sprain Print Language Print Language: Vietnamese Discharge ED Provider: Ignacio Goldstein Adult HPI General Chief complaint: Extremity Injury, Lower Stated complaint: R ankle pain ao Time Seen by Provider: 12/07/23 12:12 Mode of Arrival: Ambulatory Source of Information: Patient Limitations: No Limitations Description of Symptoms (Recalled from ER Triage Doc. by RN): c/o right ankle pain after falling out of bed yesterday morning, denies hitting her head or any other injuries at this time. History of Present Illness HPI narrative: Patient is a 58-year-old female who presents with pain to the lateral aspect of her right ankle after a fall out of bed yesterday. She denies any injury or pain elsewhere. The pain is located on the outside of her right ankle. She has been able to bear weight. She sustained an abrasion over the affected area that is now hemostatic. No previous therapies. No pain in her knee. No numbness or tingling. She was in her normal state of health prior to onset of symptoms. She reports that she was rolling over in bed but retained consciousness immediately preceding and after this injury. She is unsure of her tetanus status. Please note that above description of symptoms, in this electronic medical record under categorization of recalled from ER triage doctor by RN are reflective of an initial nursing assessment, however, is not reflective of my full history and physical exam that was personally taken and clarified. Consequentially, this preceding description of symptoms, which may include the patient's categorized chief complaint in the EMR, do not reflect my personal clinical impression, and the ultimate description of history of present illness and patient stated complaints should be deferred to this section of the note. Unless stated otherwise or congruent with this section of the note, additional signs, symptoms, or incongruence should be interpreted as inaccurate with my clinical impression. Related Data Home Medications ?Medication ?Instructions ?Recorded ?Confirmed levetiracetam 750 mg tablet 750 mg PO 03/04/22 10/31/23 baclofen 20 mg tablet 20 mg PO DAILY 07/15/22 10/31/23 ropinirole 1 mg tablet 1 mg PO 12/28/22 10/31/23 gabapentin 800 mg tablet 800 mg PO TID 04/22/23 10/31/23 pramipexole 1.5 mg tablet mg PO 09/07/23 10/31/23 Previous Rx's ?Medication ?Instructions ?Recorded naloxone 4 mg/actuation nasal 4 mg intranasal Q2M PRN opioid 02/07/23 spray (Narcan) overdose #2 ea ferrous sulfate 325 mg (65 mg See Rx Instructions .Route 03/09/23 iron) tablet (FeroSul) .COMPLEX #30 tabs levocetirizine 5 mg tablet See Rx Instructions .Route 03/09/23 .COMPLEX #30 tabs albuterol sulfate 90 mcg/actuation See Rx Instructions .Route 03/10/23 aerosol inhaler (Ventolin HFA) .COMPLEX #18 grams cyanocobalamin (vitamin B-12) See Rx Instructions .Route 03/10/23 5,000 mcg sublingual tablet .COMPLEX #30 tabs (Vitamin B-12) dapagliflozin propanediol 5 mg See Rx Instructions .Route 03/10/23 tablet (Farxiga) .COMPLEX #30 tabs ipratropium 0.5 mg-albuterol 3 mg See Rx Instructions .Route 03/10/23 (2.5 mg base)/3 mL nebulization .COMPLEX #180 mL soln levothyroxine 150 mcg tablet See Rx Instructions .Route 03/10/23 .COMPLEX #30 tabs metoprolol succinate 50 mg See Rx Instructions .Route 03/10/23 tablet,extended release 24 hr .COMPLEX #90 tabs topiramate 200 mg tablet 200 mg PO BID tremor #180 tabs 03/10/23 umeclidinium 62.5 mcg-vilanterol 1 inh inhalation DAILY #60 ea 03/10/23 25 mcg/actuation powdr for inhalation (Anoro Ellipta) atorvastatin 20 mg tablet (Lipitor) 20 mg PO DAILY #30 tabs 03/12/23 sumatriptan succinate 25 mg tablet 25 mg PO ONCE PRN migraines #14 04/22/23 tabs lisinopril 10 mg tablet 10 mg PO DAILY #30 tabs 04/23/23 cariprazine 4.5 mg capsule 4.5 mg PO DAILY #30 caps 09/17/23 (Vraylar) paroxetine HCl 20 mg tablet (Paxil) 20 mg PO DAILY #30 tabs 09/17/23 famotidine 40 mg tablet See Rx Instructions .Route 10/27/23 .COMPLEX #90 tabs ketorolac 10 mg tablet 10 mg PO Q8H PRN pain 5 days #14 12/07/23 tabs Allergies Allergy/AdvReac Type Severity Reaction Status Date / Time latex [LATEX] Allergy Severe S-SWELLS-OR Verified 09/07/23 13:36 AL/THROAT tramadol [TRAMADOL] Allergy Unknown NA-NAUSEA/V Verified 09/07/23 13:36 OMITING ANESTHETIC USED FOR D&C Allergy Unknown KEPT ME Uncoded 09/07/23 13:36 ASLEEP TO LONG lisinopril AdvReac Mild cough Uncoded 09/07/23 13:58 [facility] Disclaimer: The information contained in this section may have been updated after the patient was seen, as this information can be updated by other users. Medical History Edema of both lower extremities Dyspnea Tympanosclerosis Perforation of right tympanic membrane Impacted cerumen of right ear Anxiety Depression Exposure to hepatitis C Hypothyroidism Otitis media, left Tingling of both feet Edema COPD (chronic obstructive pulmonary disease) Nicotine dependence Smoker Family History (Updated 09/07/23 @ 14:04 by Geno Jensen RN) Mother Atrial fibrillation Father Atrial fibrillation Son Systolic heart failure Aortic valve disease Social History Smoking Status: Current every day smoker tobacco type: cigarettes packs per day: 1 alcohol intake: never substance use type: marijuana current occupational status: unemployed Travel in the last 8 weeks: None number of children: 5 Other Medical History Have you received the Flu Vaccine for this season: No Have you received the Pneumonia Vaccine: No ROS Obtained: Yes other As per HPI Physical Exam General General appearance: alert and in no apparent distress Head Head exam: atraumatic and normocephalic Eye Eye exam: Present normal appearance Neck Neck exam: Present normal inspection Chest Chest inspection: Present normal inspection and symmetric chest wall rise Respiratory Respiratory exam: Present normal lung sounds bilaterally; Absent respiratory distress Cardiovascular Cardiovascular exam: Present regular rate and normal rhythm Abdominal Exam Abdominal exam: Present soft Neurological Exam Neurological exam: Present alert and oriented X3 Psychiatric Psychiatric exam: Present normal affect and normal mood Skin Skin exam: Present warm and dry Other Other exam information: Swelling over the lateral aspect of right ankle, small overlying abrasion, hemostatic, distally neurovascularly intact Medical Decision Making Medical Records Medical records reviewed: Yes I reviewed the patient's medical records. Screening: Per USPSTF and CDC recommendations, given the prevalence of disease in our region, it is our hospital?s policy to screen for HIV and viral Hepatitis for all patients aged 18 and over and those with ongoing risk factors. Bryson Inquiry Pt receiving controlled substance: No Vital Signs: 12/07/23 11:59 12/07/23 12:30 12/07/23 13:45 Temperature 97.5 F L 97.5 F L Temperature Source Oral Pulse Rate 55 L 51 L Pulse Rate [Left Radial] 56 L Respiratory Rate 18 18 Blood Pressure 121/83 119/81 Blood Pressure [Right Arm] 120/74 Blood Pressure Mean [Right Arm] 89 Blood Pressure Source [Right Arm] Automatic Cuff Blood Pressure Position [Right Arm] Sitting 02 Sat by Pulse Oximetry 98 99 Oxygen Delivery Method Room Air Room Air Room Air Orders (Tests/Meds): ED MEDICATIONS Discontinued Medications Generic Name Dose Route Start Last Admin Trade Name Freq PRN Reason Stop Dose Admin Ketorolac Tromethamine 15 mg 12/07/23 13:03 Ketorolac 30mg/Ml Vial IV 12/07/23 13:04 ONCE ONE Ketorolac Tromethamine 15 mg 12/07/23 13:07 12/07/23 13:13 Ketorolac 30mg/Ml Vial IM 12/07/23 13:08 15 mg ONCE ONE Administration Tetanus/Reduced Diphtheria/Acell Pertussis 0.5 ml 12/07/23 13:03 12/07/23 13:14 Tet/Diphth/Pert-Adult 0.5ml Syringe IM 12/07/23 13:04 0.5 ml .ONCE ONE Administration ORDERS Category Date Time Status Ankle XR -Right minimum 3 Views [XR ankle RT min 3V] Exams 12/07/23 12:09 Completed Stat Medical Decision Narrative: Patient with history and exam per above presenting for evaluation of ankle injury Diagnoses considered include tetanus exposure, fracture, sprain, strain ED workup and treatment included: ED MEDICATIONS Discontinued Medications Generic Name Dose Route Start Last Admin Trade Name Freq PRN Reason Stop Dose Admin Ketorolac Tromethamine 15 mg 12/07/23 13:03 Ketorolac 30mg/Ml Vial IV 12/07/23 13:04 ONCE ONE Ketorolac Tromethamine 15 mg 12/07/23 13:07 12/07/23 13:13 Ketorolac 30mg/Ml Vial IM 12/07/23 13:08 15 mg ONCE ONE Administration Tetanus/Reduced Diphtheria/Acell Pertussis 0.5 ml 12/07/23 13:03 12/07/23 13:14 Tet/Diphth/Pert-Adult 0.5ml Syringe IM 12/07/23 13:04 0.5 ml .ONCE ONE Administration ORDERS Category Date Time Status Ankle XR -Right minimum 3 Views [XR ankle RT min 3V] Exams 12/07/23 12:09 Completed Stat Imaging was independently visualized and interpreted by me, significant for no acute osseous abnormality Please refer to radiology report for full details. My clinical impression at this time is most consistent with soft tissue injury I discussed my clinical impression with patient and answered all questions. At this time, the evidence for any other entities in the differential is insufficient to warrant any further testing or ED observation. This was explained to the patient. The patient was advised that persistent or worsening symptoms require further evaluation. Critical Care Critical Care Time Critical Care Time: No
[2023-12-07 12:30] VITALS: BP 121/83; PULSE 55; O2SAT 99
--- NOTE | 2023-12-07 12:58 | PC.NURSE ---
Dr. Goldstein at [facility] speaking with pt
[2023-12-07] MEDS: KETOROLAC 30MG/ML VIAL 15 MG IM (13:13)
[2023-12-07] MEDS: TET/DIPHTH/PERT-ADULT 0.5ML SYRINGE 0.5 ML IM (13:14)
[2023-12-07 13:45] VITALS: BP 119/81; PULSE 51; RESP 18; TEMP 36.4; O2SAT 100
== END 2023-12-07 13:45 | disposition home or self-care (01) ==
PROVIDERS: Emergency Provider Emergency Medicine; PCP Physician Assistant
DX: S93.409A Sprain of unspecified ligament of unspecified ankle, initial encounter (principal); M25.571 Pain in right ankle and joints of right foot; Z23 Encounter for immunization; W06.XXXA Fall from bed, initial encounter; Y93.9 Activity, unspecified; Y92.003 Bedroom of unspecified non-institutional (private) residence as the place of occurrence of the external cause
CPT/HCPCS: 90471; 73610; 90715; 96372; 99283; J1885

== ENCOUNTER 2024-08-16 11:06 | Outpatient (CLI) | payer OTHER, SELFPAY ==
[2024-08-16 18:28] LABS: Basophils # 0.1 K/mm3 (0-0.2); Basophils % 0.9 % (0.1-2.0); Eosinophils # 0.2 Kmm3 (0.0-0.4); Eosinophils % 2.5 % (0.1-12.0); Immature Granulocytes # 0.02 10^3uL; Immature Granulocytes % 0.3 %; Lymphocytes # 2.3 K/mm3 (0.7-4.5); Lymphocytes % 30.7 % (10-50); Mean Corpuscular HGB Conc 32.5 g/dL (31.8-35.4); Mean Corpuscular Hemoglobin 31.6 pg (27.0-31.2); Mean Corpuscular Volume 97.1 fl (81-99); Mean Platelet Volume 10.9 fl (7.4-10.4); Monocytes # 0.6 K/mm3 (0.1-1.0); Monocytes % 7.3 % (1.7-9.3); Neutrophils # 4.4 K/mm3 (1.8-7.8); Neutrophils % 58.3 % (37.0-80.0); Nucleated Red Blood Cells # 0 10^3/uL; Nucleated Red Blood Cells % 0 %; Platelet Count 278 K/mm3 (142-424); Red Blood Count 4.12 M/mm3 (4.20-5.40); Red Cell Distribution Width 14.2 % (11.5-17.5); Red Cell Distribution Width-SD 50.6 fL; White Blood Count 7.6 K/mm3 (4.8-10.8)
[2024-08-16 18:46] LABS: Hemoglobin A1C 5.4 % (4.0-6.0)
[2024-08-16 19:05] LABS: Alanine Aminotransferase 14 U/L (12-78); Albumin Level 3.5 g/dl (3.5-5.0); Albumin/Globulin Ratio 1.2 (1.1-1.8); Alkaline Phosphatase 105 U/L (38-126); Aspartate Amino Transferase 22 U/L (14-36); Bilirubin,Total 0.3 mg/dl (0.2-1.3); Blood Urea Nitrogen 14 mg/dl (7-17); Calcium 8.9 mg/dl (8.4-10.2); Carbon Dioxide 24 mmol/L (22.0-30.0); Chloride 111 mmol/L (98-107); Chol/HDL Ratio 4.2 (1-3.5); Cholesterol 165 mg/dl (140-200); Estimated Glomerular Filt Rate 57 ml/min (>60); GFR (African American) 69 ML/MIN (>60); Glucose 125 mg/dl (74-100); HDL Cholesterol 39 mg/dl (40-60); Sodium 139 mmol/L (136-145); Total Protein,Serum 6.5 g/dl (6.3-8.2); Triglycerides 124 mg/dl (30-150); VLDL Cholesterol 25 mg/dL (0-40)
[2024-08-16 19:16] LABS: Direct LDL Cholesterol 84.22 mg/dL (100-129)
[2024-08-16 19:24] LABS: 25-OH Vitamin D, Total 21.2 ng/mL (30-100)
== END 2024-08-16 23:59 | disposition home or self-care (01) ==
LOC: LAB.DROPOF 08-17 09:18
PROVIDERS: PCP Family Medicine; Visit Provider Family Medicine
DX: Z00.00 Encounter for general adult medical examination without abnormal findings (principal)
CPT/HCPCS: 80053; 80061; 82306; 83036; 84443; 85025

== ENCOUNTER 2024-09-13 14:00 | Outpatient (CLI) | payer OTHER, SELFPAY ==
--- NOTE | 2024-09-13 14:00 | US_ITS ---
FINAL REPORT TECHNIQUE: Limited sonographic images of the thyroid were obtained. CLINICAL HISTORY: thyroid enlargement FINDINGS: There are surgical changes from right lobectomy. No mass or remnant tissue is seen in the right thyroid bed. The left thyroid is heterogeneous and lobular. The left lobe is borderline atrophic. IMPRESSION: Borderline atrophic left lobe without discrete mass. No evidence of recurrent mass in the right thyroidectomy bed. Reviewed, Interpreted and Dictated by Krissy Prakash MD Transcribed by Vicki Zepeda Authenticated and [facility]
== END 2024-09-13 23:59 | disposition home or self-care (01) ==
LOC: RAD 14:01
PROVIDERS: PCP Family Medicine; Visit Provider Family Medicine
DX: E03.4 Atrophy of thyroid (acquired) (principal); E04.9 Nontoxic goiter, unspecified
CPT/HCPCS: 76536

== ENCOUNTER 2024-09-15 13:57 | Outpatient (CLI) | payer OTHER, SELFPAY ==
[2024-09-15 20:54] LABS: Free Thyroxine Index 2.5 ug/dL (5.93-13.13); T4 (Thyroxine) 7.7 ug/dl (5.53-11.0); Triiodothryronine (T3) Uptake 33 % (23.5-40.5)
[2024-09-15 20:55] LABS: Free T4 (Free Thyroxine) 1.18 ng/dl (0.78-2.19)
[2024-09-15 21:08] LABS: Thyroid Stimulating Hormone 15.10 uIU/mL (0.465-4.68)
--- OUTSIDE RECORDS SUMMARY | 2024-09-18 10:08 | XMS_ITS | Clinical Summary ---
Author Organization [facility] ystem Address [address] [place] [id number] Care Team Providers Care Productivity Engineer Name Role Phone Juan M Sawyer MD Primary Care Provider Social History Tobacco Use Types Packs/Day Years Used Date Smoking Tobacco: Never Assessed Abuse Screen Answer Date Recorded Unsafe at Home or Work/School Not on file Feels Threatened by Someone? Not on file 12/2022 Does Anyone Keep You from Co ntacting Others or Doint Things Outside the Home? Not on file 12/09/2022 Physical Sign of Abuse Present Not on file 1 Housing Stability Answer Date Recorded Current Living Arrangements Not on file 11/29 Potentially Unsafe Housing Conditions Not on paolo e 12/09/2022 Family and Community Support Answer Prabhu e Recorded Help with Day-to-Day Activities Not on file 12/09/2022 Lonely or Isolated Not on file 12/09/2022 Employment Answer Date Recorded Do you want help finding or keeping work or a alisson b? Not on file 12/09/2022 Disabilities Answer Date Recorded Concentrating, Remembering, or Making Decisions Difficulty Not on file 12/09/2022 Doing Errands Independently Difficulty Not on fi le 12/09/2022 Education Answer Date Recorded Help with school or training? Not on file Preferred Language Not on file 12/09/2022 Comments Unknown Sex and Gender Information Value Date Recorded Sex Assigned at Not on file Legal Sex Female 12:31 PM EDT Gender Identity Not on file Sexual Orientation Not on file Last Filed Vital Signs Vital Sign Reading Time Taken Comments Blood Pressure 130/80 09/24/2014 2:48 PM EDT Pulse 67 09/24/2014 2:48 PM EDT Temperature - - Respiratory Rate 16 09/24/2014 2:48 PM EDT Oxygen Saturation 93% 09/24/2014 2:48 PM EDT Inhaled Oxygen Concentration - - Weight 91.2 kg (200 lb 15.9 oz) 09/24/2014 2:48 PM EDT Height 167.6 cm (5' 6 ) 09/24/2014 2:48 PM EDT Body Mass Index 32.44 09/24/2014 2:48 PM EDT Plan of Treatment Health Maintenance Due Date Last Done Comments ANNUAL PHYSICAL 1965 Annual Gynecologic Pelvic and Breast Exam 1965 HEPATITIS C SCREENING 1965 TDAP/TD VACCINES (1 - Tdap) 07/07/1986 MAMMOGRAM 2007 COLOGUARD 07/07/2012 COLON CANCER SCREENING 5 YEAR SIGMOIDOSCOPY 07/07/2012 COLONOSCOPY 07/07/2012 COLORECTAL CANCER SCREENING 07/07/2012 CT COLONOGRAPHY 07/07/2012 FECAL OCCULT BLOOD TEST 07/07/2012 FIT Testing (1 year) 07/07/2012 Pneumococcal Vaccine 50+ (1 of 1 - PCV) 07/07/2017 ZOSTER VACCINE (1 of 2) 07/07/2017 COVID-19 Vaccine (1 - season) 2023 INFLUENZA VACCINE 11/29/2024 Care Teams Productivity Engineer Relationship Specialty Start Date End Date Juan M Sawyer MD [address] ATTN: [place] [id number] PCP - General 11/07/14
== END 2024-09-15 23:59 | disposition home or self-care (01) ==
LOC: LAB.DROPOF 09-18 10:00
PROVIDERS: PCP Family Medicine; Visit Provider Family Medicine
DX: E07.9 Disorder of thyroid, unspecified (principal)
CPT/HCPCS: 84436; 84439; 84443; 84479

== ENCOUNTER 2024-09-28 09:16 | Outpatient (CLI) | payer OTHER, SELFPAY ==
[2024-09-28 09:20] VITALS: BP 114/73; PULSE 77; RESP 18; TEMP 36.1; O2SAT 95
--- OUTSIDE RECORDS SUMMARY | 2024-09-28 09:20 | XMS_ITS | Clinical Summary ---
Author Organization [facility] ystem Address [address] [place] [id number] Care Team Providers Care Novelties Sales Representative Name Role Phone Juan M Sawyer MD [...] season) 2023 INFLUENZA VACCINE 11/29/2024 Care Teams Novelties Sales Representative Relationship Specialty Start Date End Date Juan M Sawyer MD [address] ATTN: [place] [phone] PCP - General 11/07/14
[2024-09-28 09:36] VITALS: BMI 29.0
[2024-09-28] MEDS: METOPROLOL TARTRATE 50MG TABLET PO (09:55)
[2024-09-28 10:04] LABS: Chloride 110 mmol/L (98-107); Sodium 138 mmol/L (136-145)
[2024-09-28 10:05] LABS: Potassium 3.5 mmoL/L (3.5-5.1)
[2024-09-28 10:08] LABS: Anion Gap 8.5 mEq/L (5-15); Blood Urea Nitrogen 13 mg/dl (7-17); Calcium 8.9 mg/dl (8.4-10.2); Carbon Dioxide 23 mmol/L (22.0-30.0); Creatinine Clearance Estimated 80 mL/min (50-200); Creatinine,Serum 1.00 mg/dl (0.52-1.04); Estimated Glomerular Filt Rate 57 ml/min (>60); GFR (African American) 69 ML/MIN (>60); Glucose 120 mg/dl (74-100)
[2024-09-28 10:56] VITALS: BP 124/70; PULSE 58; RESP 20; TEMP 36.1; O2SAT 98
[2024-09-28 10:59] VITALS: BP 114/74; PULSE 60; RESP 18; O2SAT 98
[2024-09-28 11:09] VITALS: BP 104/63; PULSE 61; RESP 18; TEMP 36.1; O2SAT 97
[2024-09-28] MEDS: 0.9 % SODIUM CHLORIDE 50 ML VIAL IV (11:09)
[2024-09-28] MEDS: SODIUM CHLORIDE 0.9% 10ML SYR (RAD ONLY) 10 ML IV (11:09)
[2024-09-28] MEDS: IOPAMIDOL-370 (76%);100ML BOTTLE 85 ML IV (11:09)
== END 2024-09-28 11:13 | disposition home or self-care (01) ==
PROVIDERS: PCP Family Medicine; Visit Provider Family Medicine
DX: R06.00 Dyspnea, unspecified (principal); R60.0 Localized edema; R07.89 Other chest pain; F17.210 Nicotine dependence, cigarettes, uncomplicated
CPT/HCPCS: 36415; 75574; 80048; Q9967